=== PATIENT | female | born 1940 | race Caucasian/White ===

== ENCOUNTER 2017-02-06 11:14 | Inpatient (IN) | payer OTHER, MEDICARE ==
[2017-02-06] VITALS (9 sets, daily range): BP systolic 126–162; BP diastolic 60–86; PULSE 93–105; RESP 18–22; TEMP 100.2–101.5; O2SAT 90–94
[~2017-02-06] VITALS: Ht 167.6 cm; Wt 91.5 kg
[~2017-02-06 11:14] MED LIST: 1-ME1LIQ PO; ALPR.5 PO; AMIT25TA20 PO; DUONI INH; PROZ20CA11 PO; SIMV80TA PO; SYNT25TA PO; TEMA15 PO; VITD400 PO; WARF-20 PO; prednisone PO
[2017-02-06 11:56] LABS: AUTOMATED NEUTROPHIL # 25.9 TH/MM3 (1.8-7.7); BASOPHIL # 0.5 TH/MM3 (0-0.2); BASOPHIL % 1.9 % (0.0-2.0); HEMATOCRIT 43.5 % (35.0-46.0); LYMPH % 2.9 % (9.0-44.0); LYMPHOCYTE # 0.8 TH/MM3 (1.0-4.8); MEAN CELL VOLUME 79.6 FL (80.0-100.0); MEAN CORPUSCULAR HEMOGLOBIN 26.7 PG (27.0-34.0); MEAN CORPUSCULAR HGB CONC 33.6 % (32.0-36.0); MONO % 3.8 % (0.0-8.0); NEUT % 91.4 % (16.0-70.0); PLATELET COUNT 241 TH/MM3 (150-450); RED BLOOD COUNT 5.46 MIL/MM3 (4.00-5.30); WHITE BLOOD COUNT 28.3 TH/MM3 (4.0-11.0)
[2017-02-06 11:59] LABS: HEMO FLAGS DIFF FINAL
[2017-02-06 12:04] LABS: CHLORIDE 98 MEQ/L (98-107); POTASSIUM 3.5 MEQ/L (3.5-5.1); SODIUM (NA) 138 MEQ/L (136-145)
[2017-02-06] MEDS ORDERED: IPRASOL INH (12:05)
[2017-02-06] MEDS ORDERED: SYNT25TA PO (12:05)
[2017-02-06] MEDS ORDERED: ZOCO80TA PO (12:05)
[2017-02-06] MEDS ORDERED: PROZ20CA11 PO (12:05)
[2017-02-06] MEDS ORDERED: ASPI1TAB69 PO (12:05)
[2017-02-06] MEDS ORDERED: CHOL1CAP8 PO (12:05)
[2017-02-06] MEDS ORDERED: ALPR.5 PO (12:05)
[2017-02-06] MEDS ORDERED: AMIT1TAB79 PO (12:05)
[2017-02-06 12:08] LABS: ANION GAP 8 MEQ/L (5-15); BICARBONATE 31.8 MEQ/L (21.0-32.0); BLOOD UREA NITROGEN 12 MG/DL (7-18)
[2017-02-06 12:11] LABS: ALT (GPT) 26 U/L (10-53); AST (GOT) 16 U/L (15-37); GLOMERULAR FILTRATION RATE 65 ML/MIN (>89)
[2017-02-06 12:13] LABS: TOTAL BILIRUBIN ADULT 0.6 MG/DL (0.2-1.0)
[2017-02-06 12:14] LABS: ALKALINE PHOSPHATASE 120 U/L (45-117)
[2017-02-06] MEDS ORDERED: SODIUM CHLOR 0.9% 1000 ML INJ 1,000 ML IV SCH (12:15)
[2017-02-06] MEDS ORDERED: ONDANSETRON HCL 4 MG/2 ML VIAL IV ONE (12:15)
[2017-02-06] MEDS ORDERED: IOHEXOL 350 MG/ML 10 ML VIAL (for RAD DIAG) IV ONE (12:29)
--- NOTE | 2017-02-06 12:40 | PD ---
HPI Chief Complaint: GI Complaint Time Seen by Provider: 11:28 Travel History International Travel<30 days: No Contact w/Intl Traveler<30days: No Traveled to known affect area: No History of Present Illness HPI This 76 year-old woman who presents to the emergency department complaining that she's been sick for 3-4 days now with dry heaves retching body aches and fevers chills. She didn't take her temperature at home but had subjective chills. She really hasn't had much cough. She denies any change in her bowel movements or diarrhea. She has some mild abdominal pain in the midabdomen. No definite sick contacts. She is feeling worse today and so she came into the emergency department. Previous abdominal surgical histories include hysterectomy and cholecystectomy. She has a lot of problems of the right knee which I think may still be chronically infected after she had a knee replacement about a year or so ago. This was complicated by developing C. difficile which was difficult to treat, as well as by DVT in the right leg for which she was on Coumadin for 6 months. History Past Medical History Narrative Medical Right knee problems ongoing since last year History of C. difficile History of DVT in the right leg Hypertension on hyperlipidemia Hypothyroidism Influenza Vaccination: Yes Menopausal: Yes Social History Alcohol Use: Yes Tobacco Use: No Allergies-Medications (Allergen,Severity, Reaction): Coded Allergies: Adhesives (Unverified Allergy, Intermediate, TEARS SKIN, 02/06/17) Sulfa (Verified Allergy, Unknown, 02/06/17) HIVES-INTERMEDIATE REACTION Reported Meds & Prescriptions Reported Meds & Active Scripts Active Reported Synthroid (Levothyroxine Sodium) 25 Mcg Tab 25 Mcg PO DAILY Prozac (Fluoxetine HCl) 20 Mg Cap 20 Mg PO DAILY Aspirin 81 Mg Tabdr 81 Mg PO DAILY Zocor (Simvastatin) 80 Mg Tab 80 Mg PO DAILY Vitamin D3 (Cholecalciferol) 400 Unit Cap 400 Units PO DAILY Elavil (Amitriptyline HCl) 25 Mg Tab 1 Tab PO HS Xanax (Alprazolam) 0.5 Mg Tab 0.5 Mg PO BID PRN Duoneb (Ipratropium-Albuterol Neb) 0.5-2.5 Mg/3 Ml Neb 1 Nebule INH Q4HR NEB Review of Systems Except as stated in HPI: all other systems reviewed are Neg Physical Exam Narrative GENERAL: Well-appearing 76 year-old woman, no acute distress. SKIN: Warm and dry. HEAD: Atraumatic. Normocephalic. EYES: Pupils equal and round. No scleral icterus. No injection or drainage. ENT: No nasal bleeding or discharge. Mucous membranes pink and moist. NECK: Trachea midline. No JVD. CARDIOVASCULAR: Regular rate and rhythm. No murmur appreciated. RESPIRATORY: No accessory muscle use. Clear to auscultation. Breath sounds equal bilaterally. GASTROINTESTINAL: Abdomen is obese and soft. Doesn't appear distended. There is moderate left-sided tenderness to palpation with some voluntary guarding. No peritonitis. MUSCULOSKELETAL: No obvious deformities. No edema. NEUROLOGICAL: Awake and alert. Cranial nerves II through XII intact. Motor and sensory grossly within normal limits. Five out of 5 muscle strength in all muscle groups. Normal speech. PSYCHIATRIC: Appropriate mood and affect; insight and judgment normal. Data Data Last Documented VS Vital Signs Date Time Temp Pulse Resp B/P Pulse Ox O2 Delivery O2 Flow Rate FiO2 02/06/17 13:35 100.4 98 18 147/72 94 Room Air Orders Complete Blood Count With Diff (02/06/17 11:29) Comprehensive Metabolic Panel (02/06/17 11:29) Lipase (02/06/17 11:29) Urinalysis - C+S If Indicated (02/06/17 11:29) Iv Access Insert/Monitor (02/06/17 11:29) Lactic Acid Sepsis Protocol (02/06/17 11:29) Ct Abd/Pel W Iv Contrast(Rout) (02/06/17 ) Chest, Single Ap (02/06/17 ) Influenzae A/B Antigen (02/06/17 12:07) Blood Culture (02/06/17 12:07) Sodium Chlor 0.9% 1000 Ml Inj (Ns 1000 M (02/06/17 12:15) Ondansetron Inj (Zofran Inj) (02/06/17 12:15) Iohexol 350 Inj (Omnipaque 350 Inj) (02/06/17 12:29) Ct Thorax/ Chest Wo Iv Contras (02/06/17 ) Labs Laboratory Tests Test 02/06/17 02/06/17 11:48 13:26 White Blood Count 28.3 TH/MM3 Red Blood Count 5.46 MIL/MM3 Hemoglobin 14.6 GM/DL Hematocrit 43.5 % Mean Corpuscular Volume 79.6 FL Mean Corpuscular Hemoglobin 26.7 PG Mean Corpuscular Hemoglobin 33.6 % Concent Red Cell Distribution Width 15.0 % Platelet Count 241 TH/MM3 Mean Platelet Volume 10.7 FL Neutrophils (%) (Auto) 91.4 % Lymphocytes (%) (Auto) 2.9 % Monocytes (%) (Auto) 3.8 % Eosinophils (%) (Auto) 0.0 % Basophils (%) (Auto) 1.9 % Neutrophils # (Auto) 25.9 TH/MM3 Lymphocytes # (Auto) 0.8 TH/MM3 Monocytes # (Auto) 1.1 TH/MM3 Eosinophils # (Auto) 0.0 TH/MM3 Basophils # (Auto) 0.5 TH/MM3 CBC Comment DIFF FINAL Differential Comment Sodium Level 138 MEQ/L Potassium Level 3.5 MEQ/L Chloride Level 98 MEQ/L Carbon Dioxide Level 31.8 MEQ/L Anion Gap 8 MEQ/L Blood Urea Nitrogen 12 MG/DL Creatinine 0.85 MG/DL Estimat Glomerular Filtration 65 ML/MIN Rate Random Glucose 158 MG/DL Lactic Acid Level 1.3 mmol/L Calcium Level 9.4 MG/DL Total Bilirubin 0.6 MG/DL Aspartate Amino Transf 16 U/L (AST/SGOT) Alanine Aminotransferase 26 U/L (ALT/SGPT) Alkaline Phosphatase 120 U/L Total Protein 8.9 GM/DL Albumin 3.8 GM/DL Lipase 94 U/L Urine Collection Type CLEAN CATCH Urine Color YELLOW Urine Turbidity CLEAR Urine pH 7.0 Urine Specific [place] 1.010 Urine Protein TRACE mg/dL Urine Glucose (UA) NEG mg/dL Urine Ketones TRACE mg/dL Urine Occult Blood TRACE Urine Nitrite NEG Urine Bilirubin NEG Urine Leukocyte Esterase NEG Urine RBC 0-3 /hpf Urine WBC 0-2 /hpf Urine Squamous Epithelial 0-5 /hpf Cells Microscopic Urinalysis Comment CULT NOT INDICATED Urine Collection Time 13:26 MDM Medical Decision Making Medical Screen Exam Complete: Yes Emergency Medical Condition: Yes Interpretation(s) LABS: CBC remarkable for marked leukocytosis CMP unremarkable Lipase unremarkable Chest x-ray: No acute infiltrate to explain current clinical symptoms. Questionable nodular density versus superimposition of shadows in the right lung base. Noncontrasted CT scan could be performed for further characterization. CT abdomen and pelvis: Diverticular disease without diverticulitis. Masslike lesions in the right middle lobe, the largest measuring 2.3 cm, dedicated CT scan chest recommended. Postsurgical changes with findings of prior cholecystectomy and hysterectomy. Differential Diagnosis Diverticulitis, colitis, influenza, URI, pneumonia, other Narrative Course Medical decision making INITIAL: This 76-year-old woman who presents to the emergency department complaining of retching, myalgias, with fever. She has abdominal tenderness I suspect an abdominal source such as diverticulitis. She had C. difficile last year after knee replacement surgery and infection. We'll check labs, x-ray, cultures, lactate, CT abdomen and pelvis, reassess. FINAL: Etiology of patient's symptoms is unclear. The high white count and the retching and abdominal tenderness makes C. difficile seem possible although she is not really having any stool changes. We'll plan on admission for observation. I spoke with Dr. tamika gaspar, will admit patient. Diagnosis Primary Impression: Abdominal pain Additional Impression: Leukocytosis Fritz Lopez MD Feb 06, 2017 12:40
--- NOTE | 2017-02-06 12:54 | RADHPO ---
EXAM DATE/TIME: 02/06/2017 12:18 This report includes an Addendum and supersedes previous reports for this exam. [facility] COMPARISON: CHEST SINGLE AP, October 07, 2015, 10:09. INDICATIONS : Short of breath MEDICAL HISTORY : Chronic obstructive pulmonary disease. Asthma SURGICAL HISTORY : None. ENCOUNTER: Initial ACUITY: 2 days PAIN SCORE: 0/10 LOCATION: Bilateral chest FINDINGS: A single view of the chest demonstrates symmetric aeration of the lungs. Questionable nodular density versus superimposition of an anterior rib and adjacent vascular markings in the right lung base. Romero gs otherwise clear without acute infiltrate or effusion. Slight dextroposition of the heart. Heart si ze is borderline but well compensated. Levoscoliosis of the lumbar spine but the osseous structures a re otherwise intact. CONCLUSION: 1. No acute infiltrate to explain current clinical symptoms. 2. Questionable nodular density versus superimposition of shadows in the right lung base. Noncontrast ed CT scan could be performed for further characterization. Mamadou Manuel MD on February 06, 2017 at 12:49 Board Certified Radiologist. This report was verified electronically. ADDENDUM: Of note, similar patchy density is identified in the left lingular region as well. Mamadou Manuel MD on February 06, 2017 at 16:35 Board Certified Radiologist. This report was verified electronically.
--- NOTE | 2017-02-06 13:02 | RADHPO ---
EXAM DATE/TIME: 02/06/2017 12:20 [facility] COMPARISON: CT ABDOMEN & PELVIS W CONTRAST, February 05, 2015, 13:57. INDICATIONS : Left lower quadrant pain. IV CONTRAST: 80 cc Omnipaque 350 (iohexol) IV ORAL CONTRAST: No oral contrast ingested. RADIATION DOSE: 19.16 CTDIvol (mGy) MEDICAL HISTORY : Hypertension. Chronic obstructive pulmonary disease. SURGICAL HISTORY : Cholecystectomy. Hysterectomy. ENCOUNTER: Initial ACUITY: 1 month PAIN SCALE: 8/10 LOCATION: Left lower quadrant TECHNIQUE: Volumetric scanning of the abdomen and pelvis was performed. Using automated exposure control and ad justment of the mA and/or kV according to patient size, radiation dose was kept as low as reasonably achievable to obtain optimal diagnostic quality images. FINDINGS: LOWER LUNGS: Interval development of masslike lesions in the right middle lobe. The largest measures 2.3 cm in alicia meter LIVER: Homogeneous density without lesion. There is no dilation of the biliary tree. Patient appears to be status post cholecystectomy. SPLEEN: Normal size without lesion. PANCREAS: Within normal limits. KIDNEYS: Normal in size and shape. There is no mass, stone or hydronephrosis. ADRENAL GLANDS: Within normal limits. VASCULAR: There is no aortic aneurysm. Dense atherosclerotic calcification of the distal aorta and iliac arteri es BOWEL/MESENTERY: Marked degenerative disease of the descending and sigmoid colon without diverticulitis. ABDOMINAL WALL: Within normal limits. RETROPERITONEUM: There is no lymphadenopathy. BLADDER: No wall thickening or mass. REPRODUCTIVE: Patient appears to be status post hysterectomy. INGUINAL: There is no lymphadenopathy or hernia. MUSCULOSKELETAL: Within normal limits for patient age. CONCLUSION: 1. Diverticular disease of the descending and sigmoid colon without diverticulitis. 2. Masslike lesions in the right middle lobe, the largest measuring 2.3 cm in diameter. A dedicated C T scan of the chest without contrast is recommended for further characterization. 3. Postsurgical changes with findings of prior cholecystectomy and hysterectomy . Mamadou Manuel MD on February 06, 2017 at 12:53 Board Certified Radiologist. This report was verified electronically.
[2017-02-06 13:30] LABS: BLOOD, URINE TRACE (NEG); GLUCOSE,URINE NEG (NEG); KETONE, URINE TRACE mg/dL (NEG); NITRITE,URINE NEG (NEG)
[2017-02-06 13:41] LABS: COMMENT (UR) CULT NOT INDICATED; CULTURE IF INDICATED CULT NOT INDICATED; METHOD OF COLLECTION CLEAN CATCH; RBC, URINE 0-3 /hpf (0-3); SQUAMOUS EPITHELIAL CELL URINE 0-5 /hpf (0-5); URINE COLOR YELLOW (YELLW/STRAW); WBC, URINE 0-2 /hpf (0-5)
[2017-02-06] MEDS ORDERED: metroNIDAZOLE 500 MG INJ 100 ML IV SCH (15:00)
[2017-02-06] MEDS ORDERED: NALOXONE HCL 0.4 MG/ML AMP IV PRN (16:15)
--- NOTE | 2017-02-06 16:32 | HHI.HP ---
HPI Service [facility] Hospitalists Primary Care Physician Reilly Rod M.D. Admission Diagnosis abdominal pain, leukocytosis Diagnoses: Chief Complaint: Fever Chills Dry heaves Nausea Travel History International Travel<30 Days: No Contact w/Intl Traveler <30 Da: No Traveled to Known Affected Are: No Sepsis Criteria SIRS Criteria (2 or more): Temp > 100.9 or < 96.8, Heart rate over 90, RR > 20 or PaCO2 < 32, WBC > 92212, < 4000 or > 10% bands Sepsis Criteria (SIRS+source): Infect source susp/known History of Present Illness This is a 76-year-old female with a past medical history significant for hypertension, dyslipidemia, COPD, hypothyroidism, DVT of the right leg, history of C. 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 Patient denies any increase in cough or shortness of breath. She denies any diarrhea constipation hematochezia or melena. She denies any burning with urination or hematuria. She denies any weight loss or night sweats. She underwent a previous total knee replacement approximately one year ago and reports chronic pain ever since and recent underwent bone scan 2 weeks ago and is awaiting the results. She has a history of heavy tobacco use of 3 packs of cigarettes a day for 65 years but quit smoking 1 month ago. She does not use oxygen at home. CT of the abdomen and pelvis was obtained which showed diverticular disease of the descending and sigmoid colon without diverticulitis and masslike lesion in the right middle lobe the largest measuring 2.3 cm and any diameter. CT of the chest shows 3 discrete parenchymal densities tussive of patchy pneumonic infiltrates, atypical neoplasm such as bronchioloalveolar carcinoma have similar appearance. Patient meets sepsis criteria with tachycardia, increased respiratory rate, fever and elevated white count of 28.3 with a left shift. Review of Systems 12 point review of systems completed and all pertinents negative except as stated in history of present illness Past Family Social History Past Medical History COPD History of C. 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 Past Surgical History Right total knee replacement Hysterectomy Cholecystectomy Cataract surgery Left ear surgery Removal of bone spur right foot fifth digit Reported Medications Synthroid (Levothyroxine Sodium) 25 Mcg Tab 25 Mcg PO DAILY Prozac (Fluoxetine HCl) 20 Mg Cap 20 Mg PO DAILY Aspirin 81 Mg Tabdr 81 Mg PO DAILY Zocor (Simvastatin) 80 Mg Tab 80 Mg PO DAILY Vitamin D3 (Cholecalciferol) 400 Unit Cap 400 Units PO DAILY Elavil (Amitriptyline HCl) 25 Mg Tab 1 Tab PO HS Xanax (Alprazolam) 0.5 Mg Tab 0.5 Mg PO BID PRN Duoneb (Ipratropium-Albuterol Neb) 0.5-2.5 Mg/3 Ml Neb 1 Nebule INH Q4HR NEB Allergies: Coded Allergies: Adhesives (Unverified Allergy, Intermediate, TEARS SKIN, 02/06/17) Sulfa (Verified Allergy, Unknown, 02/06/17) HIVES-INTERMEDIATE REACTION Active Ordered Medications Current Medications Medications (Trade) Dose Ordered Sig/Nick Route Start Time Stop Time Status Last Admin (NS 1000 ml Inj) 1,000 ml @ 84 mls/hr [id number] IV 02/06/17 16:13 UNV (NS Flush) 2 ml UNSCH PRN IV FLUSH 02/06/17 16:15 UNV (NS Flush) 2 ml BID IV FLUSH 02/06/17 21:00 UNV (Tylenol) 650 mg Q4H PRN PO 02/06/17 16:15 UNV (Zofran Inj) 4 mg Q6H PRN IVP 02/06/17 16:15 UNV (Colace) 100 mg Q12H PO 02/06/17 16:15 UNV (Narcan Inj) 0.4 mg UNSCH PRN IV 02/06/17 16:15 UNV (Flagyl) 500 mg Q8HR PO 02/06/17 16:15 UNV (Xanax) 0.5 mg BID PRN PO 02/06/17 16:30 UNV (Elavil) 25 mg HS PO 02/06/17 21:00 UNV (Ecotrin Ec) 81 mg DAILY PO 02/07/17 09:00 UNV (Vitamin D3) 400 units DAILY PO 02/07/17 09:00 UNV (PROzac) 20 mg DAILY PO 02/07/17 09:00 UNV (Synthroid) 25 mcg DAILY PO 02/07/17 09:00 UNV Non-Formulary Medication 80 mg DAILY PO 02/07/17 09:00 UNV Family History Father with cancer Mother, coronary artery disease, [place] Social History Patient has a lengthy history of heavy tobacco use 3 packs a day 65 years, reports quitting 1 month ago Denies any alcohol consumption or illicit drug use. Physical Exam Vital Signs Vital Signs Date Time Temp Pulse Resp B/P Pulse Ox O2 Delivery O2 Flow Rate FiO2 02/06/17 14:30 105 18 160/60 93 Nasal Cannula 2 02/06/17 13:35 100.4 98 18 147/72 94 Room Air 02/06/17 11:35 96 22 137/75 90 Room Air 02/06/17 11:22 101.2 98 20 157/71 92 Physical Exam GENERAL: This is a well-nourished, well-developed patient, in no apparent distress. Pleasant and cooperative. SKIN: No rashes, ecchymoses or lesions. Warm and dry. HEAD: Atraumatic. Normocephalic. EYES: Pupils equal round and reactive. Extraocular motions intact. No scleral icterus. No injection or drainage. ENT: Nose without bleeding, purulent drainage or septal hematoma. Throat without erythema, tonsillar hypertrophy or exudate. Uvula midline. Airway patent. NECK: Trachea midline. No lymphadenopathy. Supple, nontender, no meningeal signs. CARDIOVASCULAR: Regular rate and rhythm without murmurs, gallops, or rubs. RESPIRATORY: Bibasilar fine crackles noted. Expiratory wheezing throughout. GASTROINTESTINAL: Abdomen soft, nondistended. No hepato-splenomegaly, or palpable masses. No guarding. Tenderness to palpation left lower quadrant. MUSCULOSKELETAL: Extremities without clubbing, cyanosis, or edema. No joint effusion, or edema noted. No calf tenderness. Some tenderness to palpation right knee. Well-healed surgical scar anterior right knee with some mild warmth. No appreciable effusion or erythema. NEUROLOGICAL: Awake and alert. Able to move all 4 extremities. No focal neurologic deficit. Laboratory Laboratory Tests Test 02/06/17 02/06/17 11:48 13:26 White Blood Count 28.3 Red Blood Count 5.46 Hemoglobin 14.6 Hematocrit 43.5 Mean Corpuscular Volume 79.6 Mean Corpuscular Hemoglobin 26.7 Mean Corpuscular Hemoglobin 33.6 Concent Red Cell Distribution Width 15.0 Platelet Count 241 Mean Platelet Volume 10.7 Neutrophils (%) (Auto) 91.4 Lymphocytes (%) (Auto) 2.9 Monocytes (%) (Auto) 3.8 Eosinophils (%) (Auto) 0.0 Basophils (%) (Auto) 1.9 Neutrophils # (Auto) 25.9 Lymphocytes # (Auto) 0.8 Monocytes # (Auto) 1.1 Eosinophils # (Auto) 0.0 Basophils # (Auto) 0.5 CBC Comment DIFF FINAL Differential Comment Sodium Level 138 Potassium Level 3.5 Chloride Level 98 Carbon Dioxide Level 31.8 Anion Gap 8 Blood Urea Nitrogen 12 Creatinine 0.85 Estimat Glomerular Filtration 65 Rate Random Glucose 158 Lactic Acid Level 1.3 Calcium Level 9.4 Total Bilirubin 0.6 Aspartate Amino Transf 16 (AST/SGOT) Alanine Aminotransferase 26 (ALT/SGPT) Alkaline Phosphatase 120 Total Protein 8.9 Albumin 3.8 Lipase 94 Urine Collection Type CLEAN CATCH Urine Color YELLOW Urine Turbidity CLEAR Urine pH 7.0 Urine Specific [place] 1.010 Urine Protein TRACE Urine Glucose (UA) NEG Urine Ketones TRACE Urine Occult Blood TRACE Urine Nitrite NEG Urine Bilirubin NEG Urine Leukocyte Esterase NEG Urine RBC 0-3 Urine WBC 0-2 Urine Squamous Epithelial 0-5 Cells Microscopic Urinalysis Comment CULT NOT INDICATED Urine Collection Time 13:26 Date/Time Procedure Status Source Growth 02/06/17 12:10 Influenza Types A,B Antigen (BRUCE) - Final Complete Nasal Washing NEGATIVE FOR FLU A AND B ANTIGEN.... 02/06/17 11:58 Aerobic Blood Culture Received Blood Peripheral Pending 02/06/17 11:58 Anaerobic Blood Culture Received Blood Peripheral Pending Result Diagram: 02/06/17 1148 02/06/17 1148 Imaging Last 48 hours Impressions Chest X-Ray 02/06/17 0000 Signed Impressions: Service Date/Time: Saturday, February 06, 2017 12:18 - CONCLUSION: 1. No acute infiltrate to explain current clinical symptoms. 2. Questionable nodular density versus superimposition of shadows in the right lung base. Noncontrasted CT scan could be performed for further characterization. Mamadou Manuel MD ADDENDUM: Of note, similar patchy density is identified in the left lingular region as well. Mamadou Manuel MD Chest CT 02/06/17 0000 Signed Impressions: Service Date/Time: Monday, February 06, 2017 16:06 - CONCLUSION: 1. CT confirms the presence of 3 discrete parenchymal densities. These are in the right middle lobe, left lingula and right azygoesophageal recess. Imaging characteristics are suggestive of patchy pneumonic infiltrates rather than neoplastic processes. However, I would recommend a followup CT of the chest in a few weeks after therapy to ensure resolution. Atypical neoplasm such as bronchoalveolar carcinoma could have a similar appearance. 2. No obvious adenopathy on this noncontrasted study. 3. Levorotoscoliosis of the thoracolumbar spine. Mamadou Manuel MD Abdomen/Pelvis CT 02/06/17 0000 Signed Impressions: Service Date/Time: Monday, February 06, 2017 12:20 - CONCLUSION: 1. Diverticular disease of the descending and sigmoid colon without diverticulitis. 2. Masslike lesions in the right middle lobe, the largest measuring 2.3 cm in diameter. A dedicated CT scan of the chest without contrast is recommended for further characterization. 3. Postsurgical changes with findings of prior cholecystectomy and hysterectomy . Mamadou Manuel MD Assessment and Plan Assessment and Plan 76-year-old female with a past medical history significant for hypertension, dyslipidemia, hypothyroidism, DVT of the right leg, history of C. 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 Leukocytosis due to recurrent C. difficile infection versus gastroenteritis versus lung infection Patient will be admitted to inpatient Patient with a previous history of C. difficile Lactic acid normal CT of the abdomen reveals diverticular disease without evidence of diverticulitis. There is a masslike lesion in the right middle lobe largest measuring 2.[address] of the chest reveals 3 discrete parenchymal densities suggestive of an acute infiltrates, atypical neoplasm may have similar appearance. Chest x-ray personally reviewed, no evidence of infiltrate, questionable density in base. IV fluids Flagyl by mouth C. difficile ordered. Follow-up on results and adjust treatment as indicated. IV antiemetics when necessary Repeat CBC in a.m. Pneumonia - CT chest results as stated above - PO Flagyl for possible C. difficile infection but will offer cross coverage for possible anaerobes of the lung - IV Levaquin 750 mg daily - Consult pulmonary medicine for assistance, specifically to address concerns of possible atypical neoplasm Sepsis Patient meets sepsis criteria with tachycardia, fever and elevated white count IV fluids Follow up on blood culture results COPD Resume home bronchodilators Supple abdominal oxygen Duonebs as needed OA status post right total knee replacement with chronic right knee pain Patient had bone scan done approximately 2 weeks ago and is awaiting results Concern for postoperative knee infection Will contact patient surgeon and discuss History of DVT on Coumadin. Resume dose. DVT prophylaxis Coumadin SCD/RUSLAN valderrama Written by Brittany Robles PA-C acting as scribe for Dr. Cain on 02/06/17 at 16:28. Physician Certification 2 Midnight Certification Type: Admission for Inpatient Services Order for Inpatient Services The services are ordered in accordance with Medicare regulations or non- Medicare payer requirements, as applicable. In the case of services not specified as inpatient-only, they are appropriately provided as inpatient services in accordance with the 2-midnight benchmark. Estimated LOS (days): 2 days is the estimated time the patient will need to remain in the hospital, assuming treatment plan goals are met and no additional complications. Post-Hospital Plan: Not yet determined Brittany Robles Feb 06, 2017 16:32 Steffi Cain MD Feb 11, 2017 09:40
--- NOTE | 2017-02-06 16:36 | RADHPO ---
EXAM DATE/TIME: 02/06/2017 16:06 [place] COMPARISON: CHEST SINGLE AP, February 06, 2017, 12:18. INDICATIONS : Abnormal CT abdomen/pelvis scan. Evaluate for mass. RADIATION DOSE: 11.69 CTDIvol (mGy) MEDICAL HISTORY : Hypertension. Chronic obstructive pulmonary disease. SURGICAL HISTORY : Cholecystectomy. Hysterectomy. Orthopedic sugery. ENCOUNTER: Initial ACUITY: 1 day PAIN SCALE: 0/10 LOCATION: chest TECHNIQUE: Volumetric scanning of the chest was performed. Using automated exposure control and adjustment of t he mA and/or kV according to patient size, radiation dose was kept as low as reasonably achievable to obtain optimal diagnostic quality images. FINDINGS: LUNGS: There are discrete areas of parenchymal density, one of which measures 3.2 cm in diameter and corresp onds to the abnormality on previous plain film. Second area of similar density is seen in the left li ngula and a third area of consolidation is identified in the azygoesophageal recess in the right lowe r lobe. PLEURAE: There is no pleural thickening or pleural effusion. MEDIASTINUM: The heart and great vessels demonstrate no acute abnormality. There is no mediastinal or hilar lymph adenopathy identified on this noncontrasted exam. There is atherosclerotic calcification of the coron supriya arteries. AXILLAE: Within normal limits. No lymphadenopathy. MUSCULOSKELETAL: Levoscoliosis of the thoracolumbar spine. MISCELLANEOUS: The visualized upper abdominal organs demonstrate no acute abnormality. CONCLUSION: 1. CT confirms the presence of 3 discrete parenchymal densities. These are in the right middle lobe, left lingula and right azygoesophageal recess. Imaging characteristics are suggestive of patchy pneum onic infiltrates rather than neoplastic processes. However, I would recommend a followup CT of the est in a few weeks after therapy to ensure resolution. Atypical neoplasm such as bronchoalveolar carc inoma could have a similar appearance. 2. No obvious adenopathy on this noncontrasted study. 3. Levorotoscoliosis of the thoracolumbar spine. Mamadou Manuel MD on February 06, 2017 at 16:25 Board Certified Radiologist. This report was verified electronically.
[2017-02-06] MEDS: metroNIDAZOLE 500 MG TAB PO SCH ×2 (16:45→21:57)
[2017-02-06] MEDS: ONDANSETRON HCL 4 MG/2 ML VIAL IVP PRN ×2 (16:59→22:52)
[2017-02-06] MEDS: SODIUM CHLOR 0.9% 1000 ML INJ 1,000 ML IV SCH (17:00)
[2017-02-06] MEDS ORDERED: VANCOMYCIN 500 MG VIAL (FOR ORAL USE ONLY) PO SCH (18:00)
[2017-02-06] MEDS: RESP: ALBUTEROL 2.5 MG/IPRATROPIUM 0.5 MG NEB (SCH) NEB (18:36)
[2017-02-06] MEDS: ACETAMINOPHEN 325 MG TAB PO PRN (18:50)
[2017-02-06] MEDS ORDERED: LEVOFLOXACIN 750 MG PREMIX INJ 150 ML IV SCH (20:00)
[2017-02-06] MEDS: AMITRIPTYLINE HCL 25 MG TAB PO SCH (20:27)
[2017-02-06] MEDS: ACETAMINOPHEN/HYDROcodone 325 MG/5 MG TAB PO PRN (20:27)
[2017-02-06] MEDS: DOCUSATE SODIUM 100 MG CAP PO SCH (20:27)
[2017-02-06] MEDS: SODIUM CHLORIDE 0.9% FLUSH 10 ML FLUSH IV FLUSH SCH (20:28)
[2017-02-07] VITALS (7 sets, daily range): BP systolic 92–142; BP diastolic 54–76; PULSE 85–103; RESP 16–24; TEMP 96.8–99.7; O2SAT 90–96
[2017-02-07 05:52] LABS: AUTOMATED NEUTROPHIL # 28.8 TH/MM3 (1.8-7.7); BASOPHIL % 0.1 % (0.0-2.0); EOSINOPHIL % 0.1 % (0.0-4.0); HEMATOCRIT 35.4 % (35.0-46.0); LYMPH % 4.3 % (9.0-44.0); LYMPHOCYTE # 1.3 TH/MM3 (1.0-4.8); MEAN CELL VOLUME 79.9 FL (80.0-100.0); MEAN CORPUSCULAR HEMOGLOBIN 26.8 PG (27.0-34.0); MEAN CORPUSCULAR HGB CONC 33.5 % (32.0-36.0); NEUT % 91.5 % (16.0-70.0); PLATELET COUNT 177 TH/MM3 (150-450); RED BLOOD COUNT 4.43 MIL/MM3 (4.00-5.30); RED CELL DISTRIBUTION WIDTH 15.3 % (11.6-17.2); WHITE BLOOD COUNT 31.4 TH/MM3 (4.0-11.0)
[2017-02-07 05:55] LABS: HEMO FLAGS DIFF FINAL
[2017-02-07 06:08] LABS: POTASSIUM 3.7 MEQ/L (3.5-5.1)
[2017-02-07] MEDS: LEVOTHYROXINE SODIUM 25 MCG TAB PO SCH (06:10)
[2017-02-07] MEDS: metroNIDAZOLE 500 MG TAB PO SCH ×3 (06:10→21:17)
[2017-02-07] MEDS: SODIUM CHLOR 0.9% 1000 ML INJ 1,000 ML IV SCH ×2 (06:10→16:03)
[2017-02-07 06:27] LABS: BICARBONATE 30.7 MEQ/L (21.0-32.0); MAGNESIUM 1.7 MG/DL (1.5-2.5)
[2017-02-07] MEDS: RESP: ALBUTEROL 2.5 MG/IPRATROPIUM 0.5 MG NEB (SCH) NEB ×3 (07:44→19:49)
[2017-02-07] MEDS: SODIUM CHLORIDE 0.9% FLUSH 10 ML FLUSH IV FLUSH SCH ×2 (09:00→21:00)
--- NOTE | 2017-02-07 09:25 | HHI.PR ---
Subjective Remarks Follow-up on patient with pneumonia. Patient states she feels a little better today. No episodes of diarrhea since admission so unable to collect specimen. No nausea/vomiting or abdominal pain. No chest pain. Shortness of breath is improved. Objective Vitals Vital Signs Date Time Temp Pulse Resp B/P Pulse Ox O2 Delivery O2 Flow Rate FiO2 02/07/17 04:00 99.7 97 16 92/61 91 02/07/17 00:00 96.8 103 22 142/65 90 02/06/17 20:00 100.2 93 21 126/64 94 02/06/17 20:00 96 02/06/17 18:39 92 Nasal Cannula 2.00 02/06/17 17:00 101.5 101 20 141/77 92 02/06/17 16:38 84 20 162/68 93 Nasal Cannula 2 02/06/17 15:35 100 20 154/86 Nasal Cannula 02/06/17 14:30 105 18 160/60 93 Nasal Cannula 2 02/06/17 13:35 100.4 98 18 147/72 94 Room Air 02/06/17 11:35 96 22 137/75 90 Room Air 02/06/17 11:22 101.2 98 20 157/71 92 I/O 02/06/17 02/06/17 02/06/17 02/07/17 02/07/17 02/07/17 07:00 15:00 23:00 07:00 15:00 23:00 Intake Total 1000 ml 708 ml 743 ml Balance 1000 ml 708 ml 743 ml Intake Oral 120 ml 240 ml IV Total 1000 ml 588 ml 503 ml # Voids 1 2 2 # Bowel Movements 0 0 Result Diagram: 02/07/17 0520 02/07/17 0520 Imaging Last 48 hours Impressions Chest X-Ray 02/06/17 0000 Signed Impressions: Service Date/Time: Monday, February 06, 2017 12:18 - CONCLUSION: 1. No acute infiltrate to explain current clinical symptoms. 2. Questionable nodular density versus superimposition of shadows in the right lung base. Noncontrasted CT scan could be performed for further characterization. Mamadou Manuel MD ADDENDUM: Of note, similar patchy density is identified in the left lingular region as well. Mamadou Manuel MD Chest CT 02/06/17 0000 Signed Impressions: Service Date/Time: Monday, February 06, 2017 16:06 - CONCLUSION: 1. CT confirms the presence of 3 discrete parenchymal densities. These are in the right middle lobe, left lingula and right azygoesophageal recess. Imaging characteristics are suggestive of patchy pneumonic infiltrates rather than neoplastic processes. However, I would recommend a followup CT of the chest in a few weeks after therapy to ensure resolution. Atypical neoplasm such as bronchoalveolar carcinoma could have a similar appearance. 2. No obvious adenopathy on this noncontrasted study. 3. Levorotoscoliosis of the thoracolumbar spine. Mamadou Manuel MD Abdomen/Pelvis CT 02/06/17 0000 Signed Impressions: Service Date/Time: Monday, February 06, 2017 12:20 - CONCLUSION: 1. Diverticular disease of the descending and sigmoid colon without diverticulitis. 2. Masslike lesions in the right middle lobe, the largest measuring 2.3 cm in diameter. A dedicated CT scan of the chest without contrast is recommended for further characterization. 3. Postsurgical changes with findings of prior cholecystectomy and hysterectomy . Mamadou Manuel MD Objective Remarks GENERAL: This is a well-nourished, well-developed patient, in no apparent distress. Pleasant and cooperative. SKIN: Warm and dry. HEAD: Atraumatic. Normocephalic. EYES: EOMI. CARDIOVASCULAR: Regular rate and rhythm without murmurs, gallops, or rubs. RESPIRATORY: Bibasilar fine crackles noted. GASTROINTESTINAL: Abdomen soft, nondistended. No hepato-splenomegaly, or palpable masses. No guarding. NTTP. MUSCULOSKELETAL: Extremities without clubbing, cyanosis, or edema. No joint effusion, or edema noted. No calf tenderness. Well-healed surgical scar anterior right knee with some mild warmth as well as tenderness to palpation and with ROM. No appreciable effusion or erythema. NEUROLOGICAL: Awake and alert. Able to move all 4 extremities. No focal neurologic deficit. Medications and IVs Current Medications Medications (Trade) Dose Ordered Sig/Nick Route Start Time Stop Time Status Last Admin (NS 1000 ml Inj) 1,000 ml @ 84 mls/hr [id number] IV 02/06/17 16:13 02/07/17 06:10 (NS Flush) 2 ml UNSCH PRN IV FLUSH 02/06/17 16:15 (NS Flush) 2 ml BID IV FLUSH 02/06/17 21:00 (Tylenol) 650 mg Q4H PRN PO 02/06/17 16:15 02/06/17 18:50 (Zofran Inj) 4 mg Q6H PRN IVP 02/06/17 16:15 02/06/17 22:52 (Colace) 100 mg Q12HR PO 02/06/17 21:00 02/06/17 20:27 (Narcan Inj) 0.4 mg UNSCH PRN IV 02/06/17 16:15 (Flagyl) 500 mg Q8HR PO 02/06/17 16:45 02/07/17 06:10 (Xanax) 0.5 mg BID PRN PO 02/06/17 16:30 (Elavil) 25 mg HS PO 02/06/17 21:00 02/06/17 20:27 (Ecotrin Ec) 81 mg DAILY PO 02/07/17 09:00 (Vitamin D3) 400 units DAILY PO 02/07/17 09:00 (PROzac) 20 mg DAILY PO 02/07/17 09:00 (Synthroid) 25 mcg DAILY@0600 PO 02/07/17 06:00 02/07/17 06:10 Pravastatin Sodium 80 mg 80 mg DAILY PO 02/07/17 09:00 (Levaquin 750 Mg Premix Inj) 150 ml @ 100 mls/hr Q24H IV 02/06/17 20:00 02/06/17 20:28 ([place] 5-325 Mg) 1 tab Q6H PRN PO 02/06/17 19:45 02/06/17 20:27 A/P Assessment and Plan 76-year-old female with a past medical history significant for hypertension, dyslipidemia, hypothyroidism, DVT of the right leg, history of C. 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 Leukocytosis due to gastroenteritis and PNA worsening white count, 28.3 -> 31.4. low grade temp 100.2. HR 97 Abdominal complaints have resolved. Patient with a previous history of C. difficile. No diarrhea since admission. Unable to collect sample. Unlikely current CDiff infection. D/C cdiff collection and isolation. Lactic acid normal CT of the abdomen reveals diverticular disease without evidence of diverticulitis. There is a masslike lesion in the right middle lobe largest measuring 2.[address] of the chest reveals 3 discrete parenchymal densities suggestive of an acute infiltrates, atypical neoplasm may have similar appearance. Continue Flagyl by mouth IV antiemetics when necessary Repeat CBC in a.m. Pneumonia - CT chest results as stated above - Continue with PO Flagyl for coverage for possible anaerobes of the lung - Continue IV Levaquin 750 mg daily - Consult pulmonary medicine for assistance, specifically to address concerns of possible atypical neoplasm Hypotensive this am - continue with IVF - Patient does not have a history of hypertension and as such is not on any antihypertensives - close monitoring of BP Sepsis Patient met sepsis criteria with tachycardia, fever and elevated white count. White count up to 31.4. Still with low-grade temperature 100.2. Hypotensive. Heart rate 97. Continue IV fluids and IV antibiotics Follow up on blood culture results - still pending STEPHANIE Mild creatinine 0.85 -> 1.10 Avoid nephrotoxic agents ?Medication reaction, Levaquin Continue IV fluids Will continue to monitor closely COPD continue home bronchodilators Supple abdominal oxygen Duonebs as needed OA status post right total knee replacement with chronic right knee pain Patient had bone scan done approximately 2 weeks ago and is awaiting results Concern for postoperative knee infection and/or possible loosening of components No evidence of infection, unlikely leukocytosis related to the TKR. Will defer discussion with surgeon at this time. History of DVT Continue patient's home Coumadin Obtain PT/INR DVT prophylaxis On Coumadin Written by Brittany Robles PA-C acting as scribe for Dr. El on 02/07/17 at 08:03. All or portions of this note were transcribed by scribe Brittany Robles PA-C. I, Dr. Kj El personally performed the history, physical exam, and medical decision making; and confirmed the accuracy of the information in the transcribed note. Authenticated by Dr. Kj El on 02/07/17 at 14:11. Brittany Robles Feb 07, 2017 09:25 Kj El MD Feb 07, 2017 14:11
[2017-02-07 10:11] LABS: BLOOD GAS BASE EXCESS 1.9 mmol/L (-2-2); BLOOD GAS HCO3 26 mmol/L (22-26); BLOOD GAS METHEMOGLOBIN 1.1 % (0-2); BLOOD GAS O2 HGB SATURATION 91 % (90-100); BLOOD GAS PCO2 42 mmHG (38-42); BLOOD GAS PO2 69 mmHG (61-120); BLOOD GAS TOTAL HGB 11.7 G/DL (12.0-16.0); TEMP CORR TO 98.6
[2017-02-07 10:12] LABS: CRITICAL VALUE NO; DRAW SITE LT RADIAL; LITER FLOW 4 L/M; NUMBER OF ARTERIAL PUNCTURES 1; OXYGEN DEVICE NASAL CANNULA; STAT NO; ULNAR PULSE PRESENT
[2017-02-07] MEDS: CHOLECALCIFEROL (VIT D3) 400 UNIT TAB PO SCH (10:22)
[2017-02-07] MEDS: FLUoxetine HCL 20 MG CAP PO SCH (10:23)
[2017-02-07] MEDS: PRAVASTATIN SOD 80 MG TAB PO SCH (10:23)
[2017-02-07] MEDS: ASPIRIN EC 81 MG TABEC PO SCH (10:23)
[2017-02-07] MEDS: DOCUSATE SODIUM 100 MG CAP PO SCH ×2 (10:23→21:17)
[2017-02-07] MEDS: ACETAMINOPHEN/HYDROcodone 325 MG/5 MG TAB PO PRN ×2 (10:28→16:50)
[2017-02-07] MEDS: ONDANSETRON HCL 4 MG/2 ML VIAL IVP PRN (10:28)
[2017-02-07] MEDS: ACETAMINOPHEN 325 MG TAB PO PRN (13:50)
--- NOTE | 2017-02-07 18:24 | MB ---
cc: NÉSTOR PALM M.D. DATE OF CONSULTATION: 02/07/2017 REASON FOR CONSULTATION Pneumonia. HISTORY OF PRESENT ILLNESS Mrs. Kapadia is a 76-year-old female who has a known history of COPD. She does have a long heavy smoking history, has stopped smoking about a month ago. She was admitted with a four-day history of generalized weakness, nausea and left lower quadrant abdominal pain. She has an occasional cough with a small amount of clear whitish sputum. No fever or chills, no hemoptysis. She was noted to be hypoxemic, she was placed on oxygen therapy. CT scan of the chest with right midlung infiltrate, pneumonia suspect. PAST MEDICAL HISTORY 1. COPD. 2. DVT, on Coumadin therapy. 3. Hypertension. 4. Hyperlipidemia. 5. Hypothyroidism. 6. Status post right total knee replacement. 7. Hysterectomy. 8. Cholecystectomy. 9. Cataract surgery. 10. She had surgery on her left ear as well. 11. Spur removal from her right foot. MEDICATIONS AT HOME 1. Duo-Neb. 2. Xanax. 3. Elavil. 4. Zocor. 5. Aspirin. 6. Prozac. 7. Synthroid. ALLERGIES ADHESIVE TAPE, SULFA DRUGS. FAMILY HISTORY Noncontributory. REVIEW OF SYSTEMS A 12-point review of systems as per HPI and past history otherwise negative. SOCIAL HISTORY A long heavy smoking history of three packs a day, stopped smoking about a month ago, she smoked for over 60 years. Does not drink any alcohol. No TB. No industrial exposure. PHYSICAL EXAMINATION VITAL SIGNS: Temperature 98, pulse 80, respiration 18, blood pressure 110/70, oxygen saturation 90% on 2 liters oxygen nasal cannula. HEENT: Unremarkable. Eyes without icterus. NECK: Neck without adenopathy or thyroid enlargement. Central trachea. CHEST: Chest without dullness to percussion. Scattered rhonchi on auscultation. CARDIAC: PMI distant. S1, S2 audible. No murmur, no rub. ABDOMEN: Lax, bowel sounds audible. EXTREMITIES: No clubbing, cyanosis or edema. SKIN: Normal. No lymphadenopathy. IMAGING CT scan of the chest with right midlung infiltrate suggestive of pneumonia rather than malignancy. LABORATORY DATA White count 31,000, hemoglobin 12, hematocrit 35, sodium 141, potassium 3.7, BUN 17, creatinine 1.1. IMPRESSION 1. COPD exacerbation. 2. Hypoxic respiratory failure. 3. Pneumonia. 4. History of DVT. 5. Hypertension. 6. Hyperlipidemia. 7. Hypothyroidism. 8. Mood disorder. PLAN The patient will be maintained on oxygen therapy. She may require home oxygen therapy depending on her oxygenation upon time of discharge. A followup CT scan of the chest in a month would be appropriate. Antibiotic therapy. Bronchodilator therapy would be appropriate as well. Upon discharge we will see the patient in a week in the office at which time further evaluation will be undertaken as needed. I do thank you for asking me to partake in Mrs. Kapadia's care. Néstor Palm MD WWW/JOEL /2:50 PM /6:06 PM
[2017-02-07] MEDS: AMITRIPTYLINE HCL 25 MG TAB PO SCH (21:17)
[2017-02-08] VITALS (13 sets, daily range): BP systolic 102–142; BP diastolic 65–78; PULSE 92–160; RESP 18–22; TEMP 96–98.7; O2SAT 91–96
[2017-02-08] MEDS: ACETAMINOPHEN/HYDROcodone 325 MG/5 MG TAB PO PRN ×3 (00:01→21:31)
[2017-02-08] MEDS: SODIUM CHLOR 0.9% 1000 ML INJ 1,000 ML IV SCH (01:50)
[2017-02-08] MEDS: ALPRAZolam 0.5 MG TAB PO PRN ×2 (01:50→17:17)
[2017-02-08] MEDS: LEVOTHYROXINE SODIUM 25 MCG TAB PO SCH (05:21)
[2017-02-08] MEDS: metroNIDAZOLE 500 MG TAB PO SCH ×3 (05:21→22:28)
[2017-02-08 06:06] LABS: AUTOMATED NEUTROPHIL # 17.5 TH/MM3 (1.8-7.7); BASOPHIL % 0.1 % (0.0-2.0); EOSINOPHIL % 0.1 % (0.0-4.0); HEMATOCRIT 33.4 % (35.0-46.0); LYMPH % 6.1 % (9.0-44.0); LYMPHOCYTE # 1.2 TH/MM3 (1.0-4.8); MEAN CELL VOLUME 80.8 FL (80.0-100.0); MEAN CORPUSCULAR HEMOGLOBIN 25.8 PG (27.0-34.0); MEAN CORPUSCULAR HGB CONC 31.9 % (32.0-36.0); MONO % 4.3 % (0.0-8.0); NEUT % 89.4 % (16.0-70.0); PLATELET COUNT 167 TH/MM3 (150-450); RED BLOOD COUNT 4.13 MIL/MM3 (4.00-5.30); RED CELL DISTRIBUTION WIDTH 15.9 % (11.6-17.2); WHITE BLOOD COUNT 19.5 TH/MM3 (4.0-11.0)
[2017-02-08 06:08] LABS: HEMO FLAGS DIFF FINAL
[2017-02-08 06:14] LABS: POTASSIUM 3.2 MEQ/L (3.5-5.1)
[2017-02-08 06:15] LABS: INTERNATIONAL NORMALIZED RATIO 1.1 RATIO
[2017-02-08 06:19] LABS: BICARBONATE 29.4 MEQ/L (21.0-32.0)
[2017-02-08] MEDS ORDERED: POTASSIUM CHLORIDE 10 MEQ CONTROLLED RELEASE TAB PO ONE (08:00)
[2017-02-08] MEDS: RESP: ALBUTEROL 2.5 MG/IPRATROPIUM 0.5 MG NEB (SCH) NEB ×2 (09:25→14:32)
[2017-02-08] MEDS: CHOLECALCIFEROL (VIT D3) 400 UNIT TAB PO SCH (09:37)
[2017-02-08] MEDS: ASPIRIN EC 81 MG TABEC PO SCH (09:39)
[2017-02-08] MEDS: FLUoxetine HCL 20 MG CAP PO SCH (09:39)
[2017-02-08] MEDS: PRAVASTATIN SOD 80 MG TAB PO SCH (09:39)
[2017-02-08] MEDS: DOCUSATE SODIUM 100 MG CAP PO SCH ×2 (09:39→21:30)
[2017-02-08] MEDS: LEVOFLOXACIN 750 MG PREMIX INJ 150 ML IV SCH (10:42)
--- NOTE | 2017-02-08 12:11 | HHI.PR ---
Subjective Remarks Follow-up the patient with pneumonia. She states that she's not feeling well today. Having some pain over her left anterior rib cage. Still with persistent cough. Denies any chest pain. Patient informs me that she also takes Norvasc daily. This medication was not in her med rec and patient is unable to recall dose. Objective Vitals Vital Signs Date Time Temp Pulse Resp B/P Pulse Ox O2 Delivery O2 Flow Rate FiO2 02/08/17 11:40 160 02/08/17 10:01 91 Nasal Cannula 4.00 02/08/17 08:00 96.0 92 18 128/78 96 02/08/17 08:00 92 02/08/17 04:00 97.4 100 20 142/73 95 02/08/17 00:00 97.5 98 20 118/65 94 02/07/17 20:00 97.5 87 20 115/57 96 02/07/17 20:00 89 02/07/17 19:50 95 Nasal Cannula 4.00 02/07/17 16:00 97.5 85 23 99/54 94 I/O 02/07/17 02/07/17 02/07/17 02/08/17 02/08/17 02/08/17 07:00 15:00 23:00 07:00 15:00 23:00 Intake Total 743 ml 900 ml 1464 ml Output Total 100 ml Balance 743 ml 900 ml 1364 ml Intake Oral 240 ml 900 ml 120 ml IV Total 503 ml 1344 ml Output Urine Total 100 ml # Voids 2 5 2 # Bowel Movements 0 0 0 Result Diagram: 02/08/17 0504 02/08/17 0504 Objective Remarks GENERAL: This is a well-nourished, well-developed patient, in no apparent distress. Pleasant and cooperative. SKIN: Warm and dry. HEAD: Atraumatic. Normocephalic. EYES: EOMI. CARDIOVASCULAR: Regular rate and rhythm without murmurs, gallops, or rubs. RESPIRATORY: Lungs clear to auscultation bilaterally. GASTROINTESTINAL: Abdomen soft, nondistended. No hepato-splenomegaly, or palpable masses. No guarding. NTTP. MUSCULOSKELETAL: Extremities without clubbing, cyanosis, or edema. No joint effusion, or edema noted. No calf tenderness. Well-healed surgical scar anterior right knee with some mild warmth as well as tenderness to palpation and with ROM. No appreciable effusion or erythema. Tenderness to palpation over left anterior rib cage. NEUROLOGICAL: Awake and alert. Able to move all 4 extremities. No focal neurologic deficit. Medications and IVs Current Medications Medications (Trade) Dose Ordered Sig/Nick Route Start Time Stop Time Status Last Admin (NS 1000 ml Inj) 1,000 ml @ 84 mls/hr [id number] IV 02/06/17 16:13 02/08/17 01:50 (NS Flush) 2 ml UNSCH PRN IV FLUSH 02/08/17 14:30 (Tylenol) 650 mg Q4H PRN PO 02/06/17 16:15 02/07/17 13:50 (Zofran Inj) 4 mg Q6H PRN IVP 02/06/17 16:15 02/07/17 10:28 (Colace) 100 mg Q12HR PO 02/06/17 21:00 02/08/17 09:39 (Narcan Inj) 0.4 mg UNSCH PRN IV 02/06/17 16:15 (Flagyl) 500 mg Q8HR PO 02/06/17 16:45 02/08/17 05:21 (Xanax) 0.5 mg BID PRN PO 02/06/17 16:30 02/08/17 01:50 (Elavil) 25 mg HS PO 02/06/17 21:00 02/07/17 21:17 (Ecotrin Ec) 81 mg DAILY PO 02/07/17 09:00 02/08/17 09:39 (Vitamin D3) 400 units DAILY PO 02/07/17 09:00 02/08/17 09:37 (PROzac) 20 mg DAILY PO 02/07/17 09:00 02/08/17 09:39 (Synthroid) 25 mcg DAILY@0600 PO 02/07/17 06:00 02/08/17 05:21 (Pravachol) 80 mg DAILY PO 02/07/17 09:00 02/08/17 09:39 Acetaminophen/ Hydrocodone Bitart 1 tab 1 tab Q6H PRN PO 02/06/17 19:45 02/08/17 05:20 Levofloxacin/ Dextrose 150 ml @ 100 mls/hr Q24H IV 02/08/17 11:00 02/08/17 10:42 (Cardizem Inj/NS Inj) 125 ml @ 0 mls/hr TITRATE IV 02/08/17 13:00 02/08/17 12:44 (Heparin Inj) 5,000 units Q8HR SQ 02/08/17 14:00 02/08/17 12:43 (NS Flush) 2 ml BID IV FLUSH 02/08/17 21:00 A/P Assessment and Plan 76-year-old female with a past medical history significant for hypertension, dyslipidemia, hypothyroidism, DVT of the right leg, history of C. 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 New onset atrial fibrillation with RVR - Cardiology consultation - IV diltiazem drip - Continue to monitor on telemetry - TSH 1.210 - Cycle cardiac enzymes - Echocardiogram ordered Leukocytosis due to gastroenteritis and PNA improving, white count, 28.3 -> 31.4 -> 19.5. afebrile. Abdominal complaints have resolved. Patient with a previous history of C. difficile. No diarrhea since admission. Unable to collect sample. Unlikely current CDiff infection. D/C cdiff collection and isolation. Lactic acid normal CT of the abdomen reveals diverticular disease without evidence of diverticulitis. There is a masslike lesion in the right middle lobe largest measuring 2.[address] of the chest reveals 3 discrete parenchymal densities suggestive of an acute infiltrates, atypical neoplasm may have similar appearance. Continue Flagyl by mouth IV antiemetics when necessary Repeat CBC in a.m. Pneumonia - CT chest results as stated above - Continue with PO Flagyl for coverage of possible anaerobes of the lung - Continue IV Levaquin 750 mg daily - Patient evaluated by Dr. Palm, very much appreciate his assistance. Agrees with above plan. Plan to follow-up with him in a week in the office following discharge. Hypotensive this am - continue with IVF - Patient does not have a history of hypertension and as such is not on any antihypertensives - close monitoring of BP Sepsis Patient met sepsis criteria with tachycardia, fever and elevated white count. White count up to 31.4. Still with low-grade temperature 100.2. Hypotensive. Heart rate 97. Continue IV fluids and IV antibiotics Follow up on blood culture results - still pending STEPHANIE Mild creatinine 0.85 -> 1.10 Avoid nephrotoxic agents ?Medication reaction, Levaquin Continue IV fluids Will continue to monitor closely COPD continue home bronchodilators Supple abdominal oxygen Duonebs as needed OA status post right total knee replacement with chronic right knee pain Patient had bone scan done approximately 2 weeks ago and is awaiting results Concern for postoperative knee infection and/or possible loosening of components No evidence of infection, unlikely leukocytosis related to the TKR. Will defer discussion with surgeon at this time. History of DVT patient previously on Coumadin x 6mos DVT prophylaxis therapeutic Lovenox sq Written by Brittany Robles PA-C acting as scribe for Dr. El on 02/08/17 at 10:03. All or portions of this note were transcribed by scribe Brittany Robles PA-C. I, Dr. Kj El personally performed the history, physical exam, and medical decision making; and confirmed the accuracy of the information in the transcribed note. Authenticated by Dr. Kj El on 02/08/17 at 19:13. Brittany Robles Feb 08, 2017 12:11 Kj El MD Feb 08, 2017 19:13
[2017-02-08] MEDS: DILTIAZEM INJ 125 MG in SODIUM CHLORIDE 0.9% INJ 100 ML IV SCH ×2 (12:44→23:12)
[2017-02-08] MEDS ORDERED: DILTIAZEM HCL 25 MG/5 ML VIAL IVP ONE (13:00)
[2017-02-08] MEDS ORDERED: HEPARIN SODIUM - SQ 10,000 UNITS/ML VIAL SQ SCH (14:00)
[2017-02-08] MEDS ORDERED: SODIUM CHLORIDE 0.9% FLUSH 5 ML FLUSH IV FLUSH PRN (14:30)
[2017-02-08] MEDS: RESP: LEVALBUTEROL HYDROCHLORIDE 1.25 MG/3 ML NEB (SCH) NEB ×2 (16:43→19:47)
[2017-02-08] MEDS: RESP: IPRATROPIUM 0.5 MG/2.5 ML NEB NEB SCH ×3 (16:43→23:36)
[2017-02-08] MEDS ORDERED: DIGOXIN 0.5 MG/2 ML VIAL IV PUSH ONE (17:30)
[2017-02-08] MEDS: ENOXAPARIN SODIUM 80 MG/0.8 ML SYRINGE SQ SCH (17:43)
[2017-02-08] MEDS ORDERED: AMLO10 PO (18:01)
[2017-02-08] MEDS: SODIUM CHLORIDE 0.9% FLUSH 5 ML FLUSH IV FLUSH SCH (21:00)
[2017-02-08] MEDS: LACTOBACILLUS ACIDOPHILUS TAB PO SCH (21:29)
[2017-02-08] MEDS: AMITRIPTYLINE HCL 25 MG TAB PO SCH (21:30)
--- NOTE | 2017-02-08 23:30 | MB ---
cc: NARESH SIMS DATE OF CONSULTATION 02/08/17 REASON FOR CONSULTATION Rapid atrial fibrillation. HISTORY OF PRESENT ILLNESS Aisha Kapadia is a 76-year-old woman with a history of three pack per day smoking for 65 years which she quit one month ago. She comes in now with COPD exacerbation and pneumonia. Earlier today, she went into atrial fibrillation with rapid ventricular response. She is on 15 mg of IV Cardizem an hour and her heart rate is still very, very rapid. The patient is unaware of any palpitations. She does not have any ischemic type chest pain. She has some rib soreness that is palpable that is related to coughing. She has a chronic cough, but this had been much worse prior to admission. She had fever before coming into the hospital and has an abnormal chest x-ray and an abnormal chest CT. She has never had heart problems that she knows of in the past. Shortness of breath is improving. She continues to have a cough since admission. PAST MEDICAL HISTORY 1. Hypertension, 2. Hyperlipidemia, 3. COPD, 4. Hypothyroidism, 5. DVT of the right leg after a knee replacement. 6. C. Difficile in the past 7. Degenerative joint disease status post right total knee replacement with chronic pain in her leg for which she is seeing a specialist at [facility]. PAST SURGICAL HISTORY 1. Right knee replacement, 2. Hysterectomy, 3. Cholecystectomy, 4. Cataract surgery 5. Left ear surgery 6. Removal of a bone spur in her right foot ALLERGIES SULFA ADHESIVES FAMILY HISTORY Positive for heart disease with her mother dying of a heart attack. Father of cancer. SOCIAL HISTORY She lives alone. She has a granddaughter who lives in [place] who wants to take her in at some point. Denies alcohol or illicit drug use and quit smoking 1 month ago. PHYSICAL EXAMINATION GENERAL: An obese pleasant white female. She coughs fairly frequently, does not appear to be in acute respiratory distress, but she is just lying in bed. VITAL SIGNS: Charted. She is quite tachycardiac, has been febrile to 101.2 on February 06. HEENT: Exam unremarkable. NECK: No JVD, no bruits. CHEST: Some bilateral fine crackles and extra wheezes. CARDIAC: S1-S2 irregular rate and rhythm, markedly tachycardiac. ABDOMEN: Soft, nontender. EXTREMITIES: Good pedal pulses. No peripheral edema. NEUROLOGIC: She is alert and oriented. LABORATORY DATA Her laboratories are charted. White count has been elevated, but it is coming down. Last potassium was 3.2 but supplemented to 40 mEq p.o. CARDIOLOGY STUDIES EKG shows atrial fibrillation with rapid trigger response. There is no ST-T wave changes. There is no prior EKG to compare with. There are telemetry strips that show that she was in sinus rhythm prior to this. IMPRESSION Acute onset of atrial fibrillation, undoubtedly precipitated and aggravated by her severe pulmonary problem. Ventricular rate is very difficult to control. PLAN I am going to add IV digoxin since Cardizem by itself is not bringing the rate down. I would like to avoid beta linda if I can because of the COPD and the wheezing. Change her anticoagulation to Lovenox 1 mg subcu b.i.d. stop the aspirin and heparin that she is getting now. We will check a 2-D echo Doppler study and we will recheck potassium level in the morning. Further therapy to be determined. I will follow with you. INDICATIONS MD RM Inman/ /5:32 PM /11:16 PM
[2017-02-09] VITALS (12 sets, daily range): BP systolic 101–131; BP diastolic 55–78; PULSE 81–121; RESP 20–22; TEMP 97.3–98.6; O2SAT 90–96
[2017-02-09] MEDS ORDERED: DIGOXIN 0.5 MG/2 ML VIAL IV PUSH ONE (03:00)
[2017-02-09] MEDS: RESP: IPRATROPIUM 0.5 MG/2.5 ML NEB NEB SCH ×6 (03:30→23:20)
[2017-02-09 04:25] LABS: POTASSIUM 3.6 MEQ/L (3.5-5.1)
[2017-02-09 04:28] LABS: BICARBONATE 27.5 MEQ/L (21.0-32.0); MAGNESIUM 1.7 MG/DL (1.5-2.5)
[2017-02-09] MEDS: ENOXAPARIN SODIUM 80 MG/0.8 ML SYRINGE SQ SCH ×2 (05:48→18:08)
[2017-02-09] MEDS: LEVOTHYROXINE SODIUM 25 MCG TAB PO SCH (05:48)
[2017-02-09] MEDS: metroNIDAZOLE 500 MG TAB PO SCH (05:48)
[2017-02-09] MEDS: RESP: LEVALBUTEROL HYDROCHLORIDE 1.25 MG/3 ML NEB (SCH) NEB ×4 (07:49→20:25)
[2017-02-09 08:20] LABS: AUTOMATED NEUTROPHIL # 10.8 TH/MM3 (1.8-7.7); BASOPHIL % 0.2 % (0.0-2.0); EOSINOPHIL # 0.1 TH/MM3 (0-0.4); EOSINOPHIL % 1.1 % (0.0-4.0); HEMATOCRIT 33.2 % (35.0-46.0); LYMPHOCYTE # 1.2 TH/MM3 (1.0-4.8); MEAN CELL VOLUME 81.4 FL (80.0-100.0); MEAN CORPUSCULAR HEMOGLOBIN 26.4 PG (27.0-34.0); MEAN CORPUSCULAR HGB CONC 32.4 % (32.0-36.0); MONO % 6.1 % (0.0-8.0); NEUT % 83.6 % (16.0-70.0); PLATELET COUNT 193 TH/MM3 (150-450); RED BLOOD COUNT 4.08 MIL/MM3 (4.00-5.30); RED CELL DISTRIBUTION WIDTH 15.8 % (11.6-17.2); WHITE BLOOD COUNT 12.9 TH/MM3 (4.0-11.0)
[2017-02-09 08:23] LABS: HEMO FLAGS DIFF FINAL
[2017-02-09] MEDS: SODIUM CHLOR 0.9% 1000 ML INJ 1,000 ML IV SCH (08:37)
[2017-02-09] MEDS: DOCUSATE SODIUM 100 MG CAP PO SCH ×2 (08:38→21:03)
[2017-02-09] MEDS: SODIUM CHLORIDE 0.9% FLUSH 5 ML FLUSH IV FLUSH SCH ×2 (08:38→21:04)
[2017-02-09] MEDS: LACTOBACILLUS ACIDOPHILUS TAB PO SCH ×2 (08:39→21:04)
[2017-02-09] MEDS: PRAVASTATIN SOD 80 MG TAB PO SCH (08:40)
[2017-02-09] MEDS: CHOLECALCIFEROL (VIT D3) 400 UNIT TAB PO SCH (08:40)
[2017-02-09] MEDS: FLUoxetine HCL 20 MG CAP PO SCH (08:40)
[2017-02-09] MEDS: DILTIAZEM INJ 125 MG in SODIUM CHLORIDE 0.9% INJ 100 ML IV SCH (08:41)
--- NOTE | 2017-02-09 09:48 | HHI.PR ---
Subjective Remarks Follow-up on patient with pneumonia. Patient reports that she feels better today. Denies any complaints of pain. Still with persistent cough. Continues to require 4 L oxygen for SOB. Objective Vitals Vital Signs Date Time Temp Pulse Resp B/P Pulse Ox O2 Delivery O2 Flow Rate FiO2 02/09/17 08:00 97.3 83 20 131/71 91 02/09/17 07:51 92 Nasal Cannula 4.00 02/09/17 04:00 98.4 87 20 130/63 94 02/09/17 00:00 98.3 121 20 101/78 95 02/08/17 22:31 18 02/08/17 20:16 135 02/08/17 20:00 98.3 128 20 116/72 92 02/08/17 19:45 94 Nasal Cannula 4.00 02/08/17 18:00 128 02/08/17 16:33 136 02/08/17 16:00 98.7 140 22 102/75 96 02/08/17 14:38 94 Nasal Cannula 4.00 02/08/17 12:00 97.1 96 18 123/68 94 02/08/17 11:40 160 02/08/17 10:01 91 Nasal Cannula 4.00 I/O 02/08/17 02/08/17 02/08/17 02/09/17 02/09/17 02/09/17 07:00 15:00 23:00 07:00 15:00 23:00 Intake Total 1464 ml 48 ml 240 ml 60 ml Output Total 100 ml 200 ml Balance 1364 ml 48 ml 40 ml 60 ml Intake Oral 120 ml 48 ml 240 ml 60 ml IV Total 1344 ml Output Urine Total 100 ml 200 ml # Voids 2 3 1 1 # Bowel Movements 0 1 1 0 Result Diagram: 02/09/17 0744 02/09/17 0405 Objective Remarks GENERAL: This is a well-nourished, well-developed patient, in no apparent distress. Lying in hospital bed. A&Ox3. SKIN: Warm and dry. HEAD: Atraumatic. Normocephalic. EYES: EOMI. CARDIOVASCULAR: Regular rate and rhythm without murmurs, gallops, or rubs. RESPIRATORY: Few scattered rhonchi. GASTROINTESTINAL: Abdomen soft, nondistended. No hepato-splenomegaly, or palpable masses. No guarding. NTTP. MUSCULOSKELETAL: Extremities without clubbing, cyanosis, or edema. No joint effusion, or edema noted. No calf tenderness. Well-healed surgical scar anterior right knee with some mild warmth as well as tenderness to palpation and with ROM. No appreciable effusion or erythema. NEUROLOGICAL: Awake and alert. Able to move all 4 extremities. No focal neurologic deficit. Medications and IVs Current Medications Medications (Trade) Dose Ordered Sig/Nick Route Start Time Stop Time Status Last Admin (NS 1000 ml Inj) 1,000 ml @ 84 mls/hr [id number] IV 02/06/17 16:13 02/09/17 08:37 (NS Flush) 2 ml UNSCH PRN IV FLUSH 02/08/17 14:30 (Tylenol) 650 mg Q4H PRN PO 02/06/17 16:15 02/07/17 13:50 (Zofran Inj) 4 mg Q6H PRN IVP 02/06/17 16:15 02/07/17 10:28 (Colace) 100 mg Q12HR PO 02/06/17 21:00 02/09/17 08:38 (Narcan Inj) 0.4 mg UNSCH PRN IV 02/06/17 16:15 (Flagyl) 500 mg Q8HR PO 02/06/17 16:45 02/09/17 05:48 (Xanax) 0.5 mg BID PRN PO 02/06/17 16:30 02/08/17 17:17 (Elavil) 25 mg HS PO 02/06/17 21:00 02/08/17 21:30 (Vitamin D3) 400 units DAILY PO 02/07/17 09:00 02/09/17 08:40 (PROzac) 20 mg DAILY PO 02/07/17 09:00 02/09/17 08:40 (Synthroid) 25 mcg DAILY@0600 PO 02/07/17 06:00 02/09/17 05:48 (Pravachol) 80 mg DAILY PO 02/07/17 09:00 02/09/17 08:40 Acetaminophen/ Hydrocodone Bitart 1 tab 1 tab Q6H PRN PO 02/06/17 19:45 02/08/17 21:31 Levofloxacin/ Dextrose 150 ml @ 100 mls/hr Q24H IV 02/08/17 11:00 02/08/17 10:42 (Cardizem Inj/NS Inj) 125 ml @ 0 mls/hr TITRATE IV 02/08/17 13:00 02/09/17 08:41 (NS Flush) 2 ml BID IV FLUSH 02/08/17 21:00 (Lovenox Inj) 80 mg Q12H SQ 02/08/17 18:00 02/09/17 05:48 (Norvasc) 10 mg DAILY PO 02/08/17 18:30 02/09/17 08:40 (Lactinex) 1 tab Q12HR PO 02/08/17 21:00 02/09/17 08:39 A/P Assessment and Plan 76-year-old female with a past medical history significant for hypertension, dyslipidemia, hypothyroidism, DVT of the right leg, history of C. 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 New onset atrial fibrillation with RVR - Cardiology consulted, evaluated by Dr. Nickerson. Very much appreciate his assistance. Added IV Digoxin. HR better controlled today, now 87. - Continue IV diltiazem drip. Plan to wean per cardiology's recommendations. - Continue to monitor on telemetry - TSH 1.210. BNP 137 - Cardiac enzymes flat x 3 - Echocardiogram ordered/pending - albuterol discontinued/changed to Xopenex Leukocytosis due to gastroenteritis and PNA - Continuing to improve, white count, 28.3 -> 31.4 -> 19.5 -> 12.9. Patient remains afebrile. - Lactic acid normal - Discontinue Flagyl by mouth - IV antiemetics when necessary - Repeat CBC in a.m. Pneumonia - Improving clinically - Continue IV Levaquin 750 mg daily - Maintain on oxygen therapy - Patient evaluated by Dr. Palm, very much appreciate his assistance. Agrees with above plan. Plan to follow-up with him in a week in the office following discharge. Sepsis - Resolving - Patient met sepsis criteria with tachycardia, fever and elevated white count. - Continue IV antibiotics - Cultures show no growth x 48hrs Hypertension - Patient with a history of hypertension that she did not disclose the time of her original history. Also on Norvasc at home which was not stated in the history or on her med rec. Nursing staff confirmed medication with patient's pharmacy. Norvasc 10 mg resumed yesterday. - BP well-controlled at present - Continue with Norvasc and monitor BP Anemia - mild - Possibly dilutional - Iron studies ordered STEPHANIE - Resolved COPD exacerbated by pneumonia - Maintain supplemental oxygen.. O2 sats 91% on 4LNC. 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 El on 02/08/17 at 9:15. All or portions of this note were transcribed by scribe Brittany Robles PA-C. I, Dr. Kj El personally performed the history, physical exam, and medical decision making; and confirmed the accuracy of the information in the transcribed note. Authenticated by Dr. Kj El on 02/09/17 at 10:11. Brittany Robles Feb 09, 2017 09:48 Kj El MD Feb 09, 2017 10:11
[2017-02-09] MEDS: LEVOFLOXACIN 750 MG PREMIX INJ 150 ML IV SCH (11:47)
--- NOTE | 2017-02-09 14:41 | PD.CARD.PN ---
Subjective Subjective Remarks SOB slightly better Objective Medications Current Medications Medications (Trade) Dose Ordered Sig/Nick Route Start Time Stop Time Status Last Admin (NS Flush) 2 ml UNSCH PRN IV FLUSH 02/08/17 14:30 (Tylenol) 650 mg Q4H PRN PO 02/06/17 16:15 02/07/17 13:50 (Zofran Inj) 4 mg Q6H PRN IVP 02/06/17 16:15 02/07/17 10:28 (Colace) 100 mg Q12HR PO 02/06/17 21:00 02/09/17 08:38 (Narcan Inj) 0.4 mg UNSCH PRN IV 02/06/17 16:15 (Xanax) 0.5 mg BID PRN PO 02/06/17 16:30 02/08/17 17:17 (Elavil) 25 mg HS PO 02/06/17 21:00 02/08/17 21:30 (Vitamin D3) 400 units DAILY PO 02/07/17 09:00 02/09/17 08:40 (PROzac) 20 mg DAILY PO 02/07/17 09:00 02/09/17 08:40 (Synthroid) 25 mcg DAILY@0600 PO 02/07/17 06:00 02/09/17 05:48 (Pravachol) 80 mg DAILY PO 02/07/17 09:00 02/09/17 08:40 Acetaminophen/ Hydrocodone Bitart 1 tab 1 tab Q6H PRN PO 02/06/17 19:45 02/08/17 21:31 Levofloxacin/ Dextrose 150 ml @ 100 mls/hr Q24H IV 02/08/17 11:00 02/09/17 11:47 (Cardizem Inj/NS Inj) 125 ml @ 0 mls/hr TITRATE IV 02/08/17 13:00 02/09/17 08:41 (NS Flush) 2 ml BID IV FLUSH 02/08/17 21:00 (Lovenox Inj) 80 mg Q12H SQ 02/08/17 18:00 02/09/17 05:48 (Norvasc) 10 mg DAILY PO 02/08/17 18:30 02/09/17 08:40 (Lactinex) 1 tab Q12HR PO 02/08/17 21:00 02/09/17 08:39 Vital Signs / I&O Vital Signs Date Time Temp Pulse Resp B/P Pulse Ox O2 Delivery O2 Flow Rate FiO2 02/09/17 12:57 85 02/09/17 12:00 97.4 83 22 118/57 96 02/09/17 08:00 97.3 83 20 131/71 91 02/09/17 07:51 92 Nasal Cannula 4.00 02/09/17 06:45 81 02/09/17 04:00 98.4 87 20 130/63 94 02/09/17 00:00 98.3 121 20 101/78 95 02/08/17 22:31 18 02/08/17 20:16 135 02/08/17 20:00 98.3 128 20 116/72 92 02/08/17 19:45 94 Nasal Cannula 4.00 02/08/17 18:00 128 02/08/17 16:33 136 02/08/17 16:00 98.7 140 22 102/75 96 I/O 02/08/17 02/08/17 02/08/17 02/09/17 02/09/17 02/09/17 07:00 15:00 23:00 07:00 15:00 23:00 Intake Total 1464 ml 48 ml 240 ml 60 ml 500 ml Output Total 100 ml 200 ml Balance 1364 ml 48 ml 40 ml 60 ml 500 ml Intake Oral 120 ml 48 ml 240 ml 60 ml 500 ml IV Total 1344 ml Output Urine Total 100 ml 200 ml # Voids 2 3 1 1 2 # Bowel Movements 0 1 1 0 1 Physical Exam Alert Chest B/L wheezing CV S1 S2 slightly irregular (EKG pending) No edema Laboratory Laboratory Tests Test 02/08/17 02/08/17 02/09/17 02/09/17 17:05 22:12 04:05 07:44 Troponin I LESS THAN 0.02 0.02 NG/ML 0.03 NG/ML NG/ML B-Type Natriuretic Peptide 137 PG/ML Sodium Level 141 MEQ/L Potassium Level 3.6 MEQ/L Chloride Level 105 MEQ/L Carbon Dioxide Level 27.5 MEQ/L Anion Gap 9 MEQ/L Blood Urea Nitrogen 17 MG/DL Creatinine 0.70 MG/DL Estimat Glomerular Filtration 81 ML/MIN Rate Random Glucose 123 MG/DL Calcium Level 8.7 MG/DL Magnesium Level 1.7 MG/DL White Blood Count 12.9 TH/MM3 Red Blood Count 4.08 MIL/MM3 Hemoglobin 10.8 GM/DL Hematocrit 33.2 % Mean Corpuscular Volume 81.4 FL Mean Corpuscular Hemoglobin 26.4 PG Mean Corpuscular Hemoglobin 32.4 % Concent Red Cell Distribution Width 15.8 % Platelet Count 193 TH/MM3 Mean Platelet Volume 10.7 FL Neutrophils (%) (Auto) 83.6 % Lymphocytes (%) (Auto) 9.0 % Monocytes (%) (Auto) 6.1 % Eosinophils (%) (Auto) 1.1 % Basophils (%) (Auto) 0.2 % Neutrophils # (Auto) 10.8 TH/MM3 Lymphocytes # (Auto) 1.2 TH/MM3 Monocytes # (Auto) 0.8 TH/MM3 Eosinophils # (Auto) 0.1 TH/MM3 Basophils # (Auto) 0.0 TH/MM3 CBC Comment DIFF FINAL Differential Comment Assessment and Plan Problem List: (1) COPD (chronic obstructive pulmonary disease) (2) Atrial fibrillation with rapid ventricular response Assessment and Plan: Heart rate nl. EKG pending. FREDDY espinoza ordered Rambo Nickerson MD Feb 09, 2017 14:41
[2017-02-09] MEDS ORDERED: DILTIAZEM INJ 125 MG in SODIUM CHLORIDE 0.9% INJ 100 ML IV SCH (14:45)
[2017-02-09] MEDS ORDERED: POTASSIUM CHLORIDE 20 MEQ CONTROLLED RELEASE TAB PO ONE (15:00)
[2017-02-09 15:10] LABS: TRANSFERRIN IRON PROFILE 148 MG/DL (200-360)
[2017-02-09 15:13] LABS: FERRITIN 208 NG/ML (8-252)
[2017-02-09] MEDS: ONDANSETRON HCL 4 MG/2 ML VIAL IVP PRN (15:20)
[2017-02-09] MEDS: DILTIAZEM-CD 240 MG CAP ER PO SCH (15:20)
--- NOTE | 2017-02-09 15:58 | EKG ---
Date Performed: 02/08/2017 Time Performed: 17:00:54 PTAGE: 76 years EKG: Atrial fibrillation with rapid ventricular response, which is new from the prior tracing Se ptal ST-T changes are nonspecific Abnormal ECG PREVIOUS TRACING : 10/07/2015 09.41 DOCTOR: Rambo Nickerson Interpretating Date/Time 02/09/2017 15:57:20
--- NOTE | 2017-02-09 20:02 | EC ---
Study Study Date:02/09/2017 STUDY CONCLUSIONS SUMMARY - Left ventricle: The cavity size was normal. Wall thickness was normal. Systolic function was normal. The estimated ejection fraction was 65%. Wall motion was normal; there were no regional wall motion abnormalities. - Mitral valve: Mild regurgitation. - Tricuspid valve: Mild regurgitation. - Pulmonary arteries: Systolic pressure was mildly increased. PA peak pressure: 43mm Hg (S). If LV function is below 40, please consider prescribing an ACEI or ARB or document rationale for non-use. PROCEDURE DATA STUDY STATUS: Elective. Procedure: Transthoracic echocardiography. Image quality was good. Scanning was performed from the parasternal, apical, and subcostal acoustic windows. Study completion: The patient tolerated the procedure well. Transthoracic echocardiography. M-mode, complete 2D, complete spectral Doppler, and color Doppler. Height: Height: 66in. Weight: Weight: 196.6lb. Body mass index: BMI: 31.8kg/m^2. Body surface area: BSA: 1.99m^2. Patient status: Inpatient. CARDIAC ANATOMY LEFT VENTRICLE: The cavity size was normal. Wall thickness was normal. Systolic function was normal. The estimated ejection fraction was 65%. Wall motion was normal; there were no regional wall motion abnormalities. AORTIC VALVE: Trileaflet; normal thickness leaflets. Doppler: Transvalvular velocity was within the normal range. There was no stenosis. No regurgitation. Valve area: 2.57cm^2(VTI). Indexed valve area: 1.29cm^2/m^2 (VTI). Valve area: 2.66cm^2 (Vmax). Indexed valve area: 1.34cm^2/m^2 (Vmax). Mean gradient: 6mm Hg (S). Peak gradient: 12mm Hg (S). AORTA: Aortic root: The aortic root was normal in size. MITRAL VALVE: Structurally normal valve. Doppler: Transvalvular velocity was within the normal range. There was no evidence for stenosis. Mild regurgitation. Peak gradient: 5mm Hg (D). LEFT ATRIUM: The atrium was normal in size. RIGHT VENTRICLE: The cavity size was normal. Wall thickness was normal. PULMONIC VALVE: Doppler: Transvalvular velocity was within the normal range. There was no evidence for stenosis. No regurgitation. TRICUSPID VALVE: Structurally normal valve. Doppler: Transvalvular velocity was within the normal range. Mild regurgitation. PULMONARY ARTERY: The main pulmonary artery was normal-sized. Systolic pressure was mildly increased. RIGHT ATRIUM: The atrium was normal in size. PERICARDIUM: There was no pericardial effusion. SYSTEMIC VEINS: Inferior vena cava: The vessel was normal in size. Patient weight: 196.6lb _Ejection fraction:_ 65-75% _Fractional shortening:_ 32% up to 5Kg 5-11.5Kg 11.6-22.9Kg 23-45Kg 45-57Kg Aortic Root 7-13 <17 13-22 17-27 17-27 LA diam 6-13 <23 24-38 33-47 37-40 RVID 10-17 7-15 7-15 7-18 8-17 LVIDd 12-22 <32 24-38 33-47 37-40 LVPW 2-4 3-6 5-7 6-8 7-8 IVS 2-4 3-6 5-7 6-8 7-8 BASIC MEASUREMENTS ADULT NORMAL Left ventricle LV internal dimension, ED, chordal 46.2 mm 43-52 level, PLAX LV internal dimension, ES, chordal 29.3 mm 23-38 level, PLAX Fractional shortening, chordal level, 37 % >29 PLAX LV posterior wall thickness, ED 11.3 mm IVS/LVPW ratio, ED 1 <1.3 Ventricular septum Septal thickness, ED 11.3 mm Aortic valve Leaflet separation 20 mm 15-26 Aorta Root diameter, ED 29 mm Left atrium Anterior-posterior dimension 35 mm Anterior-posterior dimension index 1.76 cm/m^2 <2.2 BASIC MEASUREMENTS ADULT NORMAL Aortic valve Leaflet separation 20 mm 15-26 DOPPLER MEASUREMENTS ADULT NORMAL Main pulmonary artery Pressure, S *43 mm Hg =30 Aortic valve Peak velocity, S 175 cm/s Mean velocity, S 113 cm/s VTI, S 30.2 cm Mean gradient, S 6 mm Hg Peak gradient, S 12 mm Hg Valve area, VTI 2.57 cm^2 Valve area index, VTI 1.29 cm^2/m^2 Valve area, Vmax 2.66 cm^2 Valve area index, Vmax 1.34 cm^2/m^2 Mitral valve Peak E-wave velocity 113 cm/s Peak A-wave velocity 74 cm/s Deceleration time 190 ms 150-230 Peak gradient, D 5 mm Hg Peak E/A ratio 1.5 Tricuspid valve Regurgitant peak velocity 301 cm/s Peak RV-RA gradient, S 36 mm Hg Maximal regurgitant velocity 301 cm/s Systemic veins Estimated CVP 10 mm Hg Right ventricle RV pressure, S *46 mm Hg <30 Pulmonic valve Peak velocity, S 82 cm/s LEGEND: Mean values are shown as u=mean value. Asterisk (*) grimaldo values outside specified normal range. Prepared and signed by Rosalba Cee [id number]
[2017-02-09] MEDS: ACETAMINOPHEN/HYDROcodone 325 MG/5 MG TAB PO PRN (21:04)
[2017-02-09] MEDS: AMITRIPTYLINE HCL 25 MG TAB PO SCH (21:04)
[2017-02-10] VITALS (10 sets, daily range): BP systolic 105–164; BP diastolic 55–83; PULSE 80–101; RESP 20–26; TEMP 96.5–98.8; O2SAT 92–95
[2017-02-10] MEDS: RESP: IPRATROPIUM 0.5 MG/2.5 ML NEB NEB SCH ×5 (03:36→19:40)
[2017-02-10] MEDS: LEVOTHYROXINE SODIUM 25 MCG TAB PO SCH (06:26)
[2017-02-10] MEDS: ENOXAPARIN SODIUM 80 MG/0.8 ML SYRINGE SQ SCH (06:26)
[2017-02-10 08:09] LABS: AUTOMATED NEUTROPHIL # 9.5 TH/MM3 (1.8-7.7); BASOPHIL % 0.2 % (0.0-2.0); EOSINOPHIL # 0.1 TH/MM3 (0-0.4); EOSINOPHIL % 0.6 % (0.0-4.0); HEMATOCRIT 34.8 % (35.0-46.0); LYMPH % 9.7 % (9.0-44.0); LYMPHOCYTE # 1.1 TH/MM3 (1.0-4.8); MEAN CELL VOLUME 79.7 FL (80.0-100.0); MEAN CORPUSCULAR HEMOGLOBIN 26.4 PG (27.0-34.0); MEAN CORPUSCULAR HGB CONC 33.1 % (32.0-36.0); MONO % 7.1 % (0.0-8.0); NEUT % 82.4 % (16.0-70.0); PLATELET COUNT 231 TH/MM3 (150-450); RED BLOOD COUNT 4.37 MIL/MM3 (4.00-5.30); RED CELL DISTRIBUTION WIDTH 15.4 % (11.6-17.2); WHITE BLOOD COUNT 11.5 TH/MM3 (4.0-11.0)
[2017-02-10 08:10] LABS: HEMO FLAGS DIFF FINAL
[2017-02-10] MEDS: RESP: LEVALBUTEROL HYDROCHLORIDE 1.25 MG/3 ML NEB (SCH) NEB ×4 (08:17→19:40)
--- NOTE | 2017-02-10 08:51 | HHI.PR ---
Subjective Remarks Follow up on patient with pneumonia and atrial fibrillation. Patient reports persistent cough with little sputum production. Feels her chest is tight. No complaints of chest pain. Denies any issues overnight. No fever. Denies any abdominal pain, nausea/vomiting or diarrhea. She reports having bowel movement. Objective Vitals Vital Signs Date Time Temp Pulse Resp B/P Pulse Ox O2 Delivery O2 Flow Rate FiO2 02/10/17 08:18 94 Nasal Cannula 5.00 02/10/17 04:08 98.6 101 26 164/81 92 02/10/17 00:19 98.0 80 24 127/82 94 02/09/17 23:20 93 Nasal Cannula 5.00 02/09/17 22:04 20 02/09/17 21:21 98.0 84 22 109/55 90 02/09/17 20:40 93 Nasal Cannula 5.00 02/09/17 20:25 90 Nasal Cannula 4.00 02/09/17 20:00 92 Nasal Cannula 3.00 02/09/17 16:41 92 Nasal Cannula 4.00 02/09/17 16:00 98.6 84 20 131/65 95 02/09/17 12:57 85 02/09/17 12:00 97.4 83 22 118/57 96 I/O 02/09/17 02/09/17 02/09/17 02/10/17 02/10/17 02/10/17 07:00 15:00 23:00 07:00 15:00 23:00 Intake Total 60 ml 500 ml Balance 60 ml 500 ml Intake Oral 60 ml 500 ml # Voids 1 2 1 2 # Bowel Movements 0 1 Result Diagram: 02/10/17 0740 02/09/17 0405 Objective Remarks GENERAL: This is a well-nourished, well-developed patient, in no apparent distress. Sitting up in bedside chair undergoing breathing treatment. A&Ox3. SKIN: Warm and dry. HEAD: Atraumatic. Normocephalic. EYES: EOMI. CARDIOVASCULAR: Tachycardic. No murmurs, gallops, or rubs. RESPIRATORY: Scattered wheezing. Breath sounds symmetrical. GASTROINTESTINAL: Abdomen soft, nondistended. No hepato-splenomegaly, or palpable masses. No guarding. NTTP. MUSCULOSKELETAL: Extremities without clubbing, cyanosis, or edema. No joint effusion, or edema noted. No calf tenderness. Well-healed surgical scar anterior right knee with some mild warmth as well as tenderness to palpation and with ROM. No appreciable effusion or erythema. NEUROLOGICAL: Awake and alert. Able to move all 4 extremities. No focal neurologic deficit. Medications and IVs Current Medications Medications (Trade) Dose Ordered Sig/Nick Route Start Time Stop Time Status Last Admin (NS Flush) 2 ml UNSCH PRN IV FLUSH 02/08/17 14:30 (Tylenol) 650 mg Q4H PRN PO 02/06/17 16:15 02/07/17 13:50 (Zofran Inj) 4 mg Q6H PRN IVP 02/06/17 16:15 02/09/17 15:20 (Colace) 100 mg Q12HR PO 02/06/17 21:00 02/09/17 21:03 (Narcan Inj) 0.4 mg UNSCH PRN IV 02/06/17 16:15 (Xanax) 0.5 mg BID PRN PO 02/06/17 16:30 02/08/17 17:17 (Elavil) 25 mg HS PO 02/06/17 21:00 02/09/17 21:04 (Vitamin D3) 400 units DAILY PO 02/07/17 09:00 02/09/17 08:40 (PROzac) 20 mg DAILY PO 02/07/17 09:00 02/09/17 08:40 (Synthroid) 25 mcg DAILY@0600 PO 02/07/17 06:00 02/10/17 06:26 (Pravachol) 80 mg DAILY PO 02/07/17 09:00 02/09/17 08:40 Acetaminophen/ Hydrocodone Bitart 1 tab 1 tab Q6H PRN PO 02/06/17 19:45 02/09/17 21:04 (Levaquin 750 Mg Premix Inj) 150 ml @ 100 mls/hr Q24H IV 02/08/17 11:00 02/09/17 11:47 (NS Flush) 2 ml BID IV FLUSH 02/08/17 21:00 02/09/17 21:04 (Lovenox Inj) 80 mg Q12H SQ 02/08/17 18:00 02/10/17 06:26 (Norvasc) 10 mg DAILY PO 02/08/17 18:30 02/09/17 08:40 (Lactinex) 1 tab Q12HR PO 02/08/17 21:00 02/09/17 21:04 Diltiazem HCl 240 mg 240 mg DAILY PO 02/09/17 15:00 02/09/17 15:20 (Cardizem Inj/NS Inj) 125 ml @ 0 mls/hr TITRATE IV 02/09/17 14:45 A/P Assessment and Plan 76-year-old female with a past medical history significant for hypertension, dyslipidemia, hypothyroidism, DVT of the right leg, history of C. 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 New onset atrial fibrillation with RVR - Cardiology consulted, evaluated by Dr. Nickerson. Very much appreciate his assistance. PO Cardizem started and now off of IV Dilt drip. HR 90. - Continue to monitor on telemetry - TSH 1.210. BNP 137 - Cardiac enzymes flat x 3 - Echocardiogram completed and shows EF 65%, normal wall motion, mild mitral and tricuspid valve regurgitation and mildly increased systolic pressure with PA peak pressure 43mm Hg - albuterol discontinued/changed to Xopenex - continue on therapeutic Lovenox. Begin Coumadin with pharmacy to monitor and adjust dose. Leukocytosis due to gastroenteritis and PNA - Continuing to improve, white count, 28.3 -> 31.4 -> 19.5 -> 12.9 -> 11.5. Patient remains afebrile. - Lactic acid normal - IV antiemetics when necessary - Repeat CBC in a.m. Pneumonia - Improving clinically but still with wheezing and chest tightness - Continue IV Levaquin 750 mg daily - Maintain on oxygen therapy - Patient evaluated by Dr. Palm, very much appreciate his assistance. Agrees with above plan. Plan to follow-up with him in a week in the office following discharge. - begin IV steroids 40mg q8h Sepsis - Resolving - Patient met sepsis criteria with tachycardia, fever and elevated white count. - Continue IV antibiotics - Cultures show no growth x 4 days Hypertension - Patient with a history of hypertension that she did not disclose the time of her original history. Also on Norvasc at home which was not stated in the history or on her med rec. Nursing staff confirmed medication with patient's pharmacy. Norvasc 10 mg resumed. - BP well-controlled at present - Continue with Norvasc and monitor BP Anemia - mild, improving - Iron studies indicative of iron deficiency anemia. Begin by mouth repletion. STEPHANIE - Resolved COPD exacerbated by pneumonia - Maintain supplemental oxygen.. O2 sats 94% on 5LNC. 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 El on 02/10/17 at 08:41. . All or portions of this note were transcribed by scribe Brittany Robles PA-C. I, Dr. Kj El personally performed the history, physical exam, and medical decision making; and confirmed the accuracy of the information in the transcribed note. Authenticated by Dr. Kj El on 02/10/17 at 13:35. Brittany Robles Feb 10, 2017 08:51 Kj El MD Feb 10, 2017 13:35
[2017-02-10] MEDS: DOCUSATE SODIUM 100 MG CAP PO SCH ×2 (09:30→19:47)
[2017-02-10] MEDS: LACTOBACILLUS ACIDOPHILUS TAB PO SCH ×2 (09:30→19:47)
[2017-02-10] MEDS: PRAVASTATIN SOD 80 MG TAB PO SCH (09:30)
[2017-02-10] MEDS: FLUoxetine HCL 20 MG CAP PO SCH (09:30)
[2017-02-10] MEDS: CHOLECALCIFEROL (VIT D3) 400 UNIT TAB PO SCH (09:30)
[2017-02-10] MEDS: DILTIAZEM-CD 240 MG CAP ER PO SCH (09:31)
[2017-02-10] MEDS: SODIUM CHLORIDE 0.9% FLUSH 5 ML FLUSH IV FLUSH SCH ×2 (09:38→19:48)
[2017-02-10] MEDS: methylPREDNISolone SOD SUCC 40 MG/1 ML VIAL IVP SCH ×2 (09:38→17:00)
[2017-02-10 09:55] LABS: POTASSIUM 4.2 MEQ/L (3.5-5.1)
[2017-02-10 09:58] LABS: BICARBONATE 26.1 MEQ/L (21.0-32.0); MAGNESIUM 1.9 MG/DL (1.5-2.5)
[2017-02-10] MEDS: LEVOFLOXACIN 750 MG PREMIX INJ 150 ML IV SCH (11:24)
[2017-02-10] MEDS: FERROUS SULFATE 325 MG (65 MG ELEMENTAL IRON) TAB PO SCH ×2 (14:07→19:47)
[2017-02-10] MEDS: ASCORBIC ACID 500 MG TAB PO SCH ×2 (14:07→19:47)
--- NOTE | 2017-02-10 14:26 | PD.CARD.PN ---
Subjective Subjective Remarks no new complaints Objective Medications Current Medications Medications (Trade) Dose Ordered Sig/Nick Route Start Time Stop Time Status Last Admin (NS Flush) 2 ml UNSCH PRN IV FLUSH 02/08/17 14:30 02/10/17 11:24 (Tylenol) 650 mg Q4H PRN PO 02/06/17 16:15 02/07/17 13:50 (Zofran Inj) 4 mg Q6H PRN IVP 02/06/17 16:15 02/09/17 15:20 (Colace) 100 mg Q12HR PO 02/06/17 21:00 02/10/17 09:30 (Narcan Inj) 0.4 mg UNSCH PRN IV 02/06/17 16:15 (Xanax) 0.5 mg BID PRN PO 02/06/17 16:30 02/08/17 17:17 (Elavil) 25 mg HS PO 02/06/17 21:00 02/09/17 21:04 (Vitamin D3) 400 units DAILY PO 02/07/17 09:00 02/10/17 09:30 (PROzac) 20 mg DAILY PO 02/07/17 09:00 02/10/17 09:30 (Synthroid) 25 mcg DAILY@0600 PO 02/07/17 06:00 02/10/17 06:26 (Pravachol) 80 mg DAILY PO 02/07/17 09:00 02/10/17 09:30 Acetaminophen/ Hydrocodone Bitart 1 tab 1 tab Q6H PRN PO 02/06/17 19:45 02/09/17 21:04 (Levaquin 750 Mg Premix Inj) 150 ml @ 100 mls/hr Q24H IV 02/08/17 11:00 02/10/17 11:24 (NS Flush) 2 ml BID IV FLUSH 02/08/17 21:00 02/10/17 09:38 (Lovenox Inj) 80 mg Q12H SQ 02/08/17 18:00 02/10/17 06:26 (Norvasc) 10 mg DAILY PO 02/08/17 18:30 02/10/17 09:31 (Lactinex) 1 tab Q12HR PO 02/08/17 21:00 02/10/17 09:30 Diltiazem HCl 240 mg 240 mg DAILY PO 02/09/17 15:00 02/10/17 09:31 (Cardizem Inj/NS Inj) 125 ml @ 0 mls/hr TITRATE IV 02/09/17 14:45 (SoluMEDROL INJ) 40 mg Q8H IVP 02/10/17 09:00 02/10/17 09:38 (Ferrous Sulfate) 325 mg BID PO 02/10/17 14:00 02/10/17 14:07 (Vitamin C) 500 mg BID PO 02/10/17 14:00 02/10/17 14:07 Vital Signs / I&O Vital Signs Date Time Temp Pulse Resp B/P Pulse Ox O2 Delivery O2 Flow Rate FiO2 02/10/17 12:00 96.5 85 21 125/72 94 02/10/17 08:18 94 Nasal Cannula 5.00 02/10/17 08:00 96.9 86 23 130/80 95 02/10/17 08:00 Nasal Cannula 3.00 02/10/17 06:00 81 02/10/17 04:08 98.6 101 26 164/81 92 02/10/17 00:19 98.0 80 24 127/82 94 02/09/17 23:20 93 Nasal Cannula 5.00 02/09/17 22:04 20 02/09/17 21:21 98.0 84 22 109/55 90 02/09/17 20:40 93 Nasal Cannula 5.00 02/09/17 20:25 90 Nasal Cannula 4.00 02/09/17 20:00 92 Nasal Cannula 3.00 02/09/17 16:41 92 Nasal Cannula 4.00 02/09/17 16:00 98.6 84 20 131/65 95 I/O 02/09/17 02/09/17 02/09/17 02/10/17 02/10/17 02/10/17 07:00 15:00 23:00 07:00 15:00 23:00 Intake Total 60 ml 500 ml 200 ml Balance 60 ml 500 ml 200 ml Intake Oral 60 ml 500 ml 200 ml # Voids 1 2 1 2 # Bowel Movements 0 1 Physical Exam Alert, coarse cough Chest B/L wheezing better CV S1 S2 RRR No edema Laboratory Laboratory Tests Test 02/10/17 02/10/17 07:40 09:39 White Blood Count 11.5 TH/MM3 Red Blood Count 4.37 MIL/MM3 Hemoglobin 11.5 GM/DL Hematocrit 34.8 % Mean Corpuscular Volume 79.7 FL Mean Corpuscular Hemoglobin 26.4 PG Mean Corpuscular Hemoglobin 33.1 % Concent Red Cell Distribution Width 15.4 % Platelet Count 231 TH/MM3 Mean Platelet Volume 10.2 FL Neutrophils (%) (Auto) 82.4 % Lymphocytes (%) (Auto) 9.7 % Monocytes (%) (Auto) 7.1 % Eosinophils (%) (Auto) 0.6 % Basophils (%) (Auto) 0.2 % Neutrophils # (Auto) 9.5 TH/MM3 Lymphocytes # (Auto) 1.1 TH/MM3 Monocytes # (Auto) 0.8 TH/MM3 Eosinophils # (Auto) 0.1 TH/MM3 Basophils # (Auto) 0.0 TH/MM3 CBC Comment DIFF FINAL Differential Comment Sodium Level 139 MEQ/L Potassium Level 4.2 MEQ/L Chloride Level 105 MEQ/L Carbon Dioxide Level 26.1 MEQ/L Anion Gap 8 MEQ/L Blood Urea Nitrogen 10 MG/DL Creatinine 0.64 MG/DL Estimat Glomerular Filtration 90 ML/MIN Rate Random Glucose 168 MG/DL Calcium Level 9.1 MG/DL Magnesium Level 1.9 MG/DL Assessment and Plan Problem List: (1) COPD (chronic obstructive pulmonary disease) (2) Atrial fibrillation with rapid ventricular response Assessment and Plan: was in afib 24 hours. In sinus rhythm. Will change to 1 ASA daily. I am signed off. Rambo Nickerson MD Feb 10, 2017 14:26
--- NOTE | 2017-02-10 14:55 | EKG ---
Date Performed: 02/09/2017 Time Performed: 15:56:44 PTAGE: 76 years EKG: Possible ectopic atrial rhythm with PVC(s). Poor R wave progression - probable normal varia nt Septal T wave changes are nonspecific Compared to previous tracing, patient is no longer in rapid atrial fibrillation Borderline ECG PREVIOUS TRACING : 02/08/2017 17.00 DOCTOR: Rambo Nickerson Interpretating Date/Time 02/10/2017 14:54:06
[2017-02-10] MEDS ORDERED: WARFARIN SOD 5 MG TAB PO SCH (16:00)
[2017-02-10] MEDS: AMITRIPTYLINE HCL 25 MG TAB PO SCH (19:47)
[2017-02-10] MEDS: ALPRAZolam 0.5 MG TAB PO PRN (19:47)
[2017-02-10] MEDS: HEPARIN SODIUM - SQ 10,000 UNITS/ML VIAL SQ SCH (22:00)
[2017-02-11] VITALS (11 sets, daily range): BP systolic 122–147; BP diastolic 67–76; PULSE 82–93; RESP 16–24; TEMP 96.3–98.9; O2SAT 92–97
[2017-02-11] MEDS: methylPREDNISolone SOD SUCC 40 MG/1 ML VIAL IVP SCH ×3 (01:04→21:04)
[2017-02-11] MEDS: RESP: IPRATROPIUM 0.5 MG/2.5 ML NEB NEB SCH ×7 (03:29→23:23)
[2017-02-11] MEDS: HEPARIN SODIUM - SQ 10,000 UNITS/ML VIAL SQ SCH ×3 (05:19→21:04)
[2017-02-11] MEDS: LEVOTHYROXINE SODIUM 25 MCG TAB PO SCH (05:20)
[2017-02-11 06:31] LABS: AUTOMATED NEUTROPHIL # 8.9 TH/MM3 (1.8-7.7); BASOPHIL % 0.1 % (0.0-2.0); EOSINOPHIL % 0.1 % (0.0-4.0); HEMATOCRIT 33.7 % (35.0-46.0); LYMPH % 5.2 % (9.0-44.0); LYMPHOCYTE # 0.5 TH/MM3 (1.0-4.8); MEAN CELL VOLUME 80.3 FL (80.0-100.0); MEAN CORPUSCULAR HEMOGLOBIN 26.7 PG (27.0-34.0); MEAN CORPUSCULAR HGB CONC 33.3 % (32.0-36.0); MONO % 1.8 % (0.0-8.0); NEUT % 92.8 % (16.0-70.0); PLATELET COUNT 258 TH/MM3 (150-450); RED CELL DISTRIBUTION WIDTH 15.3 % (11.6-17.2); WHITE BLOOD COUNT 9.6 TH/MM3 (4.0-11.0)
[2017-02-11 06:36] LABS: HEMO FLAGS DIFF FINAL
[2017-02-11] MEDS: RESP: LEVALBUTEROL HYDROCHLORIDE 1.25 MG/3 ML NEB (SCH) NEB ×4 (07:27→19:55)
[2017-02-11] MEDS: FLUoxetine HCL 20 MG CAP PO SCH (08:38)
[2017-02-11] MEDS: CHOLECALCIFEROL (VIT D3) 400 UNIT TAB PO SCH (08:39)
[2017-02-11] MEDS: PRAVASTATIN SOD 80 MG TAB PO SCH (08:39)
[2017-02-11] MEDS: DILTIAZEM-CD 240 MG CAP ER PO SCH (08:39)
[2017-02-11] MEDS: LACTOBACILLUS ACIDOPHILUS TAB PO SCH ×2 (08:40→21:03)
[2017-02-11] MEDS: FERROUS SULFATE 325 MG (65 MG ELEMENTAL IRON) TAB PO SCH ×2 (08:40→21:03)
[2017-02-11] MEDS: ASCORBIC ACID 500 MG TAB PO SCH ×2 (08:40→21:03)
[2017-02-11] MEDS: ASPIRIN EC 81 MG TABEC PO SCH (08:40)
[2017-02-11] MEDS: DOCUSATE SODIUM 100 MG CAP PO SCH ×2 (08:40→21:03)
[2017-02-11] MEDS: SODIUM CHLORIDE 0.9% FLUSH 5 ML FLUSH IV FLUSH SCH ×2 (09:00→21:04)
--- NOTE | 2017-02-11 11:15 | HHI.PR ---
Subjective Remarks Follow-up on patient with pneumonia and atrial fibrillation. Patient states she 's feeling better. Less shortness of breath. Still with cough but this has improved. Does report waking up in the night drenched in sweats and had to change her hospital gown. No complaints of chest pain or abdominal pain. Patient reports today that she's been an emotional wreck due to her unhappiness with her chronic knee pain following her total knee replacement and now this hospitalization. She has plans to move to [place] to live with her granddaughter in the very near future as a result of her declining health status. Objective Vitals Vital Signs Date Time Temp Pulse Resp B/P Pulse Ox O2 Delivery O2 Flow Rate FiO2 02/11/17 08:00 89 02/11/17 08:00 95 Nasal Cannula 3.00 02/11/17 08:00 97.8 88 18 142/76 96 02/11/17 07:30 96 Nasal Cannula 4.50 02/11/17 04:18 97.0 93 24 147/76 94 02/11/17 00:06 98.9 89 20 138/73 92 02/10/17 20:27 98.8 91 23 140/83 93 02/10/17 20:00 84 02/10/17 20:00 93 Nasal Cannula 3.00 02/10/17 19:42 93 Nasal Cannula 4.00 02/10/17 16:00 97.0 86 20 105/55 95 02/10/17 12:00 96.5 85 21 125/72 94 I/O 02/10/17 02/10/17 02/10/17 02/11/17 02/11/17 02/11/17 07:00 15:00 23:00 07:00 15:00 23:00 Intake Total 300 ml Balance 300 ml Intake Oral 300 ml # Voids 2 1 1 # Bowel Movements 0 Result Diagram: 02/11/17 0600 02/10/17 0939 Objective Remarks GENERAL: This is a well-nourished, well-developed patient, in no apparent distress. Sitting up in bedside chair undergoing breathing treatment. A&Ox3. SKIN: Warm and dry. HEAD: Atraumatic. Normocephalic. EYES: EOMI. CARDIOVASCULAR: Tachycardic. No murmurs, gallops, or rubs. RESPIRATORY: Scattered rhonchi. Breath sounds symmetrical. GASTROINTESTINAL: Abdomen soft, nondistended. No hepato-splenomegaly, or palpable masses. No guarding. NTTP. MUSCULOSKELETAL: Extremities without clubbing, cyanosis, or edema. No joint effusion, or edema noted. No calf tenderness. Well-healed surgical scar anterior right knee with some mild warmth as well as tenderness to palpation and with ROM. No appreciable effusion or erythema. NEUROLOGICAL: Awake and alert. Able to move all 4 extremities. No focal neurologic deficit. Medications and IVs Current Medications Medications (Trade) Dose Ordered Sig/Inck Route Start Time Stop Time Status Last Admin (NS Flush) 2 ml UNSCH PRN IV FLUSH 02/08/17 14:30 02/10/17 11:24 (Tylenol) 650 mg Q4H PRN PO 02/06/17 16:15 02/07/17 13:50 (Zofran Inj) 4 mg Q6H PRN IVP 02/06/17 16:15 02/09/17 15:20 (Colace) 100 mg Q12HR PO 02/06/17 21:00 02/10/17 19:47 (Narcan Inj) 0.4 mg UNSCH PRN IV 02/06/17 16:15 (Xanax) 0.5 mg BID PRN PO 02/06/17 16:30 02/10/17 19:47 (Elavil) 25 mg HS PO 02/06/17 21:00 02/10/17 19:47 (Vitamin D3) 400 units DAILY PO 02/07/17 09:00 02/11/17 08:39 (PROzac) 20 mg DAILY PO 02/07/17 09:00 02/11/17 08:38 (Synthroid) 25 mcg DAILY@0600 PO 02/07/17 06:00 02/11/17 05:20 (Pravachol) 80 mg DAILY PO 02/07/17 09:00 02/11/17 08:39 ([place] 5-325 Mg) 1 tab Q6H PRN PO 02/06/17 19:45 02/09/17 21:04 (NS Flush) 2 ml BID IV FLUSH 02/08/17 21:00 02/11/17 09:00 (Norvasc) 10 mg DAILY PO 02/08/17 18:30 02/11/17 08:40 (Lactinex) 1 tab Q12HR PO 02/08/17 21:00 02/11/17 08:40 (Cardizem Cd) 240 mg DAILY PO 02/09/17 15:00 02/11/17 08:39 (SoluMEDROL INJ) 40 mg Q8H IVP 02/10/17 09:00 02/11/17 08:39 (Ferrous Sulfate) 325 mg BID PO 02/10/17 14:00 02/11/17 08:40 (Vitamin C) 500 mg BID PO 02/10/17 14:00 02/11/17 08:40 (Ecotrin Ec) 81 mg DAILY PO 02/11/17 09:00 02/11/17 08:40 (Heparin Inj) 5,000 units Q8HR SQ 02/10/17 22:00 02/11/17 14:34 (Levaquin) 750 mg Q24H PO 02/11/17 11:00 02/11/17 11:39 A/P Assessment and Plan 76-year-old female with a past medical history significant for hypertension, dyslipidemia, hypothyroidism, DVT of the right leg, history of C. 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 New onset atrial fibrillation with RVR - Resolved. Patient in normal sinus rhythm. Cardiology has signed off with recommendation of aspirin only for anticoagulation. - Continue on oral Cardizem - Continue to monitor on telemetry - Echocardiogram completed and shows EF 65%, normal wall motion, mild mitral and tricuspid valve regurgitation and mildly increased systolic pressure with PA peak pressure 43mm Hg - albuterol discontinued/changed to Xopenex Leukocytosis due to gastroenteritis and PNA - Resolved - Continuing to improve, white count, 28.3 -> 31.4 -> 19.5 -> 12.9 -> 11.5 -> 9.6. Patient remains afebrile. - Lactic acid normal - IV antiemetics when necessary Pneumonia - Improving - Continue IV Levaquin 750 mg daily - Maintain on oxygen therapy - Patient evaluated by Dr. Palm, very much appreciate his assistance. Agrees with above plan. Plan to follow-up with him in a week in the office following discharge. - Taper IV steroids Sepsis - Resolved - Patient met sepsis criteria with tachycardia, fever and elevated white count. - Continue IV antibiotics - Cultures show no growth x 5 days Hypertension - Patient with a history of hypertension that she did not disclose the time of her original history. Also on Norvasc at home which was not stated in the history or on her med rec. Nursing staff confirmed medication with patient's pharmacy. Norvasc 10 mg resumed. - BP well-controlled at present - Continue with Norvasc and monitor BP Anemia - mild, improving - Iron studies indicative of iron deficiency anemia. Continue by mouth repletion. STEPHANIE - Resolved COPD exacerbated by pneumonia - Maintain supplemental oxygen.. O2 sats 95% on 3 1/2L NC. 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 El on 02/11/17 at 11 :15. All or portions of this note were transcribed by scribe Brittany Robles. I, Dr. Kj El personally performed the history, physical exam, and medical decision making; and confirmed the accuracy of the information in the transcribed note. Authenticated by Dr. Kj El on 02/12/17 at 07:46. Brittany Robles Feb 11, 2017 11:15 Kj El MD Feb 12, 2017 07:46
[2017-02-11] MEDS: LEVOFLOXACIN 750 MG TAB PO SCH (11:39)
--- NOTE | 2017-02-11 15:40 | HHI.PR ---
Subjective Remarks alert less SOB ON O2 COUGH SMALL AMOUNT WHITE SPUTUM Objective Vital Signs Date Time Temp Pulse Resp B/P Pulse Ox O2 Delivery O2 Flow Rate FiO2 02/11/17 15:07 95 Nasal Cannula 2.50 02/11/17 12:00 98.7 90 20 122/69 95 02/11/17 11:21 97 Nasal Cannula 3.50 02/11/17 08:00 89 02/11/17 08:00 95 Nasal Cannula 3.00 02/11/17 08:00 97.8 88 18 142/76 96 02/11/17 07:30 96 Nasal Cannula 4.50 02/11/17 04:18 97.0 93 24 147/76 94 02/11/17 00:06 98.9 89 20 138/73 92 02/10/17 20:27 98.8 91 23 140/83 93 02/10/17 20:00 84 02/10/17 20:00 93 Nasal Cannula 3.00 02/10/17 19:42 93 Nasal Cannula 4.00 02/10/17 16:00 97.0 86 20 105/55 95 I/O 02/10/17 02/10/17 02/10/17 02/11/17 02/11/17 02/11/17 07:00 15:00 23:00 07:00 15:00 23:00 Intake Total 300 ml Balance 300 ml Intake Oral 300 ml # Voids 2 1 1 # Bowel Movements 0 Result Diagram: 02/11/17 0600 02/10/17 0939 Objective Remarks GENERAL: SKIN: Warm and dry. HEAD: Atraumatic. Normocephalic. EYES: Pupils equal and round. No scleral icterus. No injection or drainage. ENT: No nasal bleeding or discharge. Mucous membranes pink and moist. NECK: Trachea midline. No JVD. CARDIOVASCULAR: Regular rate and rhythm. RESPIRATORY: No accessory muscle use. SCATTERED RONCHI to auscultation. Breath sounds equal bilaterally. GASTROINTESTINAL: Abdomen soft, non-tender, nondistended. Hepatic and splenic margins not palpable. MUSCULOSKELETAL: Extremities without clubbing, cyanosis, or edema. No obvious deformities. NEUROLOGICAL: Awake and alert. No obvious cranial nerve deficits. Motor grossly within normal limits. Five out of 5 muscle strength in the arms and legs. Normal speech. PSYCHIATRIC: Appropriate mood and affect; insight and judgment normal. Assessment and Plan Discussed Condition With assesment COPD EXACERBATYION RESPIRATORY FAILURE PLAN O2 NEEDED BRONCHDILATOR THERAPY RA SAT TO ASSESS NEED FOR HOME O2 Néstor Palm MD Feb 11, 2017 15:40
[2017-02-11 16:18] LABS: BLOOD GAS BASE EXCESS 4.3 mmol/L (-2-2); BLOOD GAS HCO3 28 mmol/L (22-26); BLOOD GAS METHEMOGLOBIN 0.6 % (0-2); BLOOD GAS O2 HGB SATURATION 89 % (90-100); BLOOD GAS OXYGEN CONTENT 15.9 Vol % (12.0-20.0); BLOOD GAS PCO2 40 mmHg (38-42); BLOOD GAS PO2 54 mmHg (61-120); BLOOD GAS TOTAL HGB 12.8 G/DL (12.0-16.0)
[2017-02-11 16:19] LABS: CRITICAL VALUE YES; DRAW SITE RT RADIAL; FIO2 21 %; NUMBER OF ARTERIAL PUNCTURES 1; OXYGEN DEVICE ROOM AIR; STAT NO; ULNAR PULSE PRESENT
[2017-02-11] MEDS: AMITRIPTYLINE HCL 25 MG TAB PO SCH (21:03)
[2017-02-11] MEDS: ALPRAZolam 0.5 MG TAB PO PRN (21:14)
[2017-02-12] VITALS: BP 143/72; PULSE 76; RESP 16; TEMP 96.3; O2SAT 96
[2017-02-12] MEDS: RESP: IPRATROPIUM 0.5 MG/2.5 ML NEB NEB SCH ×3 (03:14→11:09)
[2017-02-12 04:00] VITALS: BP 146/70; PULSE 80; RESP 18; TEMP 97.1; O2SAT 98
[2017-02-12] MEDS: HEPARIN SODIUM - SQ 10,000 UNITS/ML VIAL SQ SCH (06:10)
[2017-02-12] MEDS: LEVOTHYROXINE SODIUM 25 MCG TAB PO SCH (06:10)
[2017-02-12 06:32] LABS: PROTHROMBIN TIME - PATIENT 10.7 SEC (9.8-11.6)
[2017-02-12] MEDS: RESP: LEVALBUTEROL HYDROCHLORIDE 1.25 MG/3 ML NEB (SCH) NEB ×2 (07:35→11:09)
[2017-02-12 07:39] VITALS: O2SAT 92
[2017-02-12 08:00] VITALS: BP 142/73; PULSE 85; RESP 22; TEMP 97.8; O2SAT 97
[2017-02-12 08:02] VITALS: PULSE 87
[2017-02-12] MEDS: DILTIAZEM-CD 240 MG CAP ER PO SCH (08:41)
[2017-02-12] MEDS: ASPIRIN EC 81 MG TABEC PO SCH (08:41)
[2017-02-12] MEDS: methylPREDNISolone SOD SUCC 40 MG/1 ML VIAL IVP SCH (08:41)
[2017-02-12] MEDS: SODIUM CHLORIDE 0.9% FLUSH 5 ML FLUSH IV FLUSH SCH (08:41)
[2017-02-12] MEDS: FERROUS SULFATE 325 MG (65 MG ELEMENTAL IRON) TAB PO SCH (08:41)
[2017-02-12] MEDS: ASCORBIC ACID 500 MG TAB PO SCH (08:41)
[2017-02-12] MEDS: LACTOBACILLUS ACIDOPHILUS TAB PO SCH (08:42)
[2017-02-12] MEDS: FLUoxetine HCL 20 MG CAP PO SCH (08:42)
[2017-02-12] MEDS: CHOLECALCIFEROL (VIT D3) 400 UNIT TAB PO SCH (08:42)
[2017-02-12] MEDS: PRAVASTATIN SOD 80 MG TAB PO SCH (08:42)
[2017-02-12] MEDS: DOCUSATE SODIUM 100 MG CAP PO SCH (08:42)
[2017-02-12] MEDS ORDERED: OXYGENTANK NAS.CANULA (09:32)
[2017-02-12] MEDS ORDERED: FERR325T PO (10:46)
[2017-02-12] MEDS ORDERED: CARD240C6 PO (10:46)
[2017-02-12] MEDS ORDERED: LEVA750T PO (10:46)
[2017-02-12] MEDS ORDERED: VITA500T PO (10:46)
[2017-02-12] MEDS ORDERED: MEDR4PAK PO (10:46)
--- NOTE | 2017-02-12 10:52 | HHI.DCPOC ---
Discharge Care Plan Diagnosis: (1) Hypokalemia (2) Hypomagnesemia (3) COPD (chronic obstructive pulmonary disease) (4) Hypoxia (5) Atrial fibrillation with rapid ventricular response (6) Pneumonia (7) Leukocytosis (8) Lung mass Goals to Promote Your Health * To prevent worsening of your condition and complications * To maintain your health at the optimal level Directions to Meet Your Goals Take your medications as prescribed Follow your dietary instruction Follow activity as directed Keep your appointments as scheduled Take your immunizations and boosters as scheduled If your symptoms worsen call your PCP, if no PCP go to Urgent Care Center or Emergency Room Smoking is Dangerous to Your Health. Avoid second hand smoke Call the 24-hour hour crisis hotline for domestic abuse at Brittany Roblse Feb 12, 2017 10:52
--- NOTE | 2017-02-12 11:10 | HHI.DS ---
Discharge Summary Admission Date Feb 06, 2017 at 16:23 Discharge Date: Feb 12, 2017 Admitting Diagnosis abdominal pain, leukocytosis (1) COPD (chronic obstructive pulmonary disease) ICD Code: J44.9 (2) Iron deficiency anemia ICD Code: D50.9 (3) Hypokalemia ICD Code: E87.6 (4) Hypomagnesemia ICD Code: E83.42 (5) Leukocytosis ICD Code: D72.829 (6) Lung mass ICD Code: R91.8 (7) Hypoxia ICD Code: R09.02 (8) Pneumonia ICD Code: J18.9 (9) Atrial fibrillation with rapid ventricular response ICD Code: I48.91 (10) Sepsis ICD Code: A41.9 (11) Hypertension ICD Code: I10 Procedures None Brief History - From Admission This is a 76-year-old female with a past medical history significant for hypertension, dyslipidemia, COPD, hypothyroidism, DVT of the right leg, history of C. 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 Patient denies any increase in cough or shortness of breath. She denies any diarrhea constipation hematochezia or melena. She denies any burning with urination or hematuria. She denies any weight loss or night sweats. She underwent a previous total knee replacement approximately one year ago and reports chronic pain ever since and recent underwent bone scan 2 weeks ago and is awaiting the results. She has a history of heavy tobacco use of 3 packs of cigarettes a day for 65 years but quit smoking 1 month ago. She does not use oxygen at home. CT of the abdomen and pelvis was obtained which showed diverticular disease of the descending and sigmoid colon without diverticulitis and masslike lesion in the right middle lobe the largest measuring 2.3 cm and any diameter. CT of the chest shows 3 discrete parenchymal densities tussive of patchy pneumonic infiltrates, atypical neoplasm such as bronchioloalveolar carcinoma have similar appearance. Patient meets sepsis criteria with tachycardia, increased respiratory rate, fever and elevated white count of 28.3 with a left shift. CBC/BMP: 02/11/17 0600 02/10/17 0939 Significant Findings Laboratory Tests Test 02/09/17 02/10/17 02/10/17 02/11/17 13:07 07:40 09:39 06:00 Iron Level 41 MCG/DL (50-170) Total Iron Binding Capacity 207 MCG/DL (250-450) Percent Iron Saturation 19.8 % (20-50) White Blood Count 11.5 TH/MM3 (4.0-11.0) Hemoglobin 11.5 GM/DL 11.2 GM/DL (11.6-15.3) (11.6-15.3) Hematocrit 34.8 % 33.7 % (35.0-46.0) (35.0-46.0) Mean Corpuscular Volume 79.7 FL (80.0-100.0) Mean Corpuscular Hemoglobin 26.4 PG 26.7 PG (27.0-34.0) (27.0-34.0) Neutrophils (%) (Auto) 82.4 % 92.8 % (16.0-70.0) (16.0-70.0) Neutrophils # (Auto) 9.5 TH/MM3 8.9 TH/MM3 (1.8-7.7) (1.8-7.7) Random Glucose 168 MG/DL (74-106) Lymphocytes (%) (Auto) 5.2 % (9.0-44.0) Lymphocytes # (Auto) 0.5 TH/MM3 (1.0-4.8) Test 02/11/17 16:03 Blood Gas HCO3 28 mmol/L (22-26) Blood Gas Base Excess 4.3 mmol/L (-2-2) Blood Gas Oxygen Saturation 89 % (90-100) Arterial Blood pH 7.46 (7.380-7.420) Arterial Blood Partial 54 mmHg Pressure O2 (61-120) Imaging Last Impressions Chest X-Ray 02/06/17 0000 Signed Impressions: Service Date/Time: Monday, February 06, 2017 12:18 - CONCLUSION: 1. No acute infiltrate to explain current clinical symptoms. 2. Questionable nodular density versus superimposition of shadows in the right lung base. Noncontrasted CT scan could be performed for further characterization. Mamadou Manuel MD ADDENDUM: Of note, similar patchy density is identified in the left lingular region as well. Mamadou Manuel MD Chest CT 02/06/17 0000 Signed Impressions: Service Date/Time: Monday, February 06, 2017 16:06 - CONCLUSION: 1. CT confirms the presence of 3 discrete parenchymal densities. These are in the right middle lobe, left lingula and right azygoesophageal recess. Imaging characteristics are suggestive of patchy pneumonic infiltrates rather than neoplastic processes. However, I would recommend a followup CT of the chest in a few weeks after therapy to ensure resolution. Atypical neoplasm such as bronchoalveolar carcinoma could have a similar appearance. 2. No obvious adenopathy on this noncontrasted study. 3. Levorotoscoliosis of the thoracolumbar spine. Mamadou Manuel MD Abdomen/Pelvis CT 02/06/17 0000 Signed Impressions: Service Date/Time: Monday, February 06, 2017 12:20 - CONCLUSION: 1. Diverticular disease of the descending and sigmoid colon without diverticulitis. 2. Masslike lesions in the right middle lobe, the largest measuring 2.3 cm in diameter. A dedicated CT scan of the chest without contrast is recommended for further characterization. 3. Postsurgical changes with findings of prior cholecystectomy and hysterectomy . Mamadou Manuel MD PE at Discharge GENERAL: This is a well-nourished, well-developed patient, in no apparent distress. Sitting up in bedside chair eating breakfast. A&Ox3. SKIN: Warm and dry. HEAD: Atraumatic. Normocephalic. EYES: EOMI. CARDIOVASCULAR: Regular rate and rhythm with no murmurs, gallops, or rubs. RESPIRATORY: Scattered rhonchi. Improved air movement. Breath sounds symmetrical. GASTROINTESTINAL: Abdomen soft, nondistended. No hepato-splenomegaly, or palpable masses. No guarding. NTTP. MUSCULOSKELETAL: Extremities without clubbing, cyanosis, or edema. No joint effusion, or edema noted. No calf tenderness. Well-healed surgical scar anterior right knee with some mild warmth as well as tenderness to palpation and with ROM. No appreciable effusion or erythema. NEUROLOGICAL: Awake and alert. Able to move all 4 extremities. No focal neurologic deficit. Pt update on day of discharge Patient reports that she is doing well today. Her breathing is better. She is satting 97% on 2 L. She denies any complaints of chest pain, abdominal pain or nausea or vomiting. Still with some cough but much improved. Hospital Course Patient admitted with leukocytosis secondary to recurrent C. difficile infection versus gastroenteritis versus lung infection. Patient was admitted inpatient. She met sepsis criteria with tachycardia, fever and elevated white count. Due to a previous history of C. difficile and admission complaints of nausea, vomiting, abdominal pain, fever and chills C. difficile study was ordered. However, the patient did not have any episodes of diarrhea following her admission, therefore the test was canceled. CT of the abdomen revealed diverticular disease without any evidence of diverticulitis and a masslike lesion in the right middle lobe measuring 2.[address] of the chest revealed 3 discrete parenchymal densities suggestive of acute infiltrates, although atypical neoplasm could have a similar appearance. She was started on IV Levaquin as well as by mouth Flagyl. Patient was asked to be seen in consultation by pulmonary medicine. Flagyl was discontinued as patient had no recurrence of her preadmission diarrhea. Patient was given supportive care with supplemental oxygen and IV fluids. Her initial white count was 19,500 but resolved to 9.6 on the day of her admission. She was noted to have some anemia with a hemoglobin/hematocrit 10.6/33.4 respectively and follow up iron studies were ordered which indicated iron deficiency anemia. Patient was started on oral supplementation. Patient was seen in consultation by Dr. Palm who agreed with IV Levaquin, home oxygen walk test prior to discharge, follow-up in one week at time of discharge in his office and a follow-up CT scan of the chest in one month. Patient went into atrial fibrillation with rapid ventricular response. Started on an IV diltiazem and Heparin drip. Echocardiogram was ordered revealing EF 65%. She remained in RVR and cardiology consult was requested. Patient was seen in consultation by Dr. Nickerson who added IV digoxin , discontinued the heparin and started the patient on therapeutic Lovenox. Patient return to normal sinus rhythm and per Dr. Nickerson only required aspirin for anticoagulation. He then signed off on the case. Blood cultures failed to show any growth in 5 days time. Respiratory home oxygen walk test was performed the patient's O2 sats dropped to 87% on room air at rest. As a result patient qualified for home oxygen to case management was consulted to assist with discharge planning with home oxygen. Patient was cleared for discharge from pulmonary standpoint. Patient participated well with physical therapy ambulating 130 feet. Patient was discharged from hospital with home health care to assist with home oxygen education. Pt Condition on Discharge: Stable Discharge Disposition: Discharge Home Discharge Time: > 30 minutes Discharge Instructions DIET: Follow Instructions for: Heart Healthy Diet Activities you can perform: Regular-No Restrictions Follow up Referrals: Cardiology - 2 Weeks PCP Follow-up - 2-3 Days Pulmonology - 1 Week with Néstor Palm MD New Medications: Methylprednisolone Dosepak (Medrol Dosepak) 4 Mg Dspk 4 MG PO DIRECTED Per Pharmacist direction #1 Ref 0 DSPK Oxygen tank (Oxygen tank) 1 Ea Tank 2 LITER LYNDSAY.CANULA CONTINUOUS Oxygen Concentrator Portable Gaseous 2 L/min via Nasal Cannula Continuous For 99 months HYPOXEMIA PREVENTION #2 CYLINDER Ascorbic Acid (Vitamin C) 500 Mg Tab 500 MG PO BID GAYLE #60 TAB Diltiazem CD 24 HR (Cardizem CD 24 HR) 240 Mg Caper 240 MG PO DAILY Atrial fibrillation #30 CAP Ferrous Sulfate (Ferrous Sulfate) 325 Mg Tab 325 MG PO BID Iron deficiency anemia #60 TAB Levofloxacin (Levaquin) 750 Mg Tab 750 MG PO Q24H Pneumonia #6 TAB Continued Medications: Alprazolam (Xanax) 0.5 Mg Tab 0.5 MG PO BID PRN ANXIETY Ref 0 TAB Amitriptyline HCl (Elavil) 25 Mg Tab 1 TAB PO HS Amlodipine (Norvasc) 10 Mg Tab 10 MG PO DAILY Blood Pressure Management #30 Ref 0 TAB Aspirin (Aspirin) 81 Mg Tabdr 81 MG PO DAILY TAB Cholecalciferol (Vitamin D3) 400 Unit Cap 400 UNITS PO DAILY Nutritional Supplement #1 Ref 0 BOTTLE Fluoxetine (Prozac) 20 Mg Cap 40 MG PO DAILY #30 Ref 0 CAP Ipratropium-Albuterol Neb (Duoneb) 0.5-2.5 Mg/3 Ml Neb 1 NEBULE INH Q4HR NEB SHORTNESS OF BREATH #120 Ref 0 NEBULE Levothyroxine (Synthroid) 25 Mcg Tab 25 MCG PO DAILY Thyroid #30 Ref 0 TAB Simvastatin (Zocor) 80 Mg Tab 40 MG PO DAILY Cholesterol Management #30 Ref 0 TAB Additional Information Written by Brittany Robles PA-C acting as scribe for Dr. El on 02/12/17 at 11:11. Brittany Robles Feb 12, 2017 11:10 Kj El MD Feb 12, 2017 15:11
[2017-02-12] MEDS: LEVOFLOXACIN 750 MG TAB PO SCH (11:44)
--- NOTE | 2017-02-12 12:02 | HHI.FF ---
Face to Face Verification Diagnosis: (1) COPD (chronic obstructive pulmonary disease) Home Health Nursing Order: Oxygen administration education Nursing assessment with vital signs I have seen patient Aisha Kapadia on 02/12/17. My clinical findings support the need for the requested home health care services because: Patient has SOB I certify that my clinical findings support that this patient is homebound because: Hx COPD- exertion dyspnea/weakness Kj El MD Feb 12, 2017 12:02
--- NOTE | 2017-02-12 22:22 | EKG ---
Date Performed: 02/10/2017 Time Performed: 05:59:24 PTAGE: 76 years EKG: Sinus rhythm with PVC(s) Septal ST changes are nonspecific Since previous tracing, no significant change noted Brian rderline ECG PREVIOUS TRACING : 02/09/2017 15.56 DOCTOR: Heide Au Interpretating Date/Time 02/12/2017 22:19:35
== END 2017-02-12 13:22 | disposition home or self-care (01) | DRG 871 ==
LOC: PHED 11:14 → PHEDA 14:09 → OBSVTOIN 16:23 → PH3A 16:44
PROVIDERS: ADMIT Family Medicine; ATTEND Family Medicine
DX: A41.9 Sepsis, unspecified organism (principal); J18.9 Pneumonia, unspecified organism; J96.91 Respiratory failure, unspecified with hypoxia; N17.9 Acute kidney failure, unspecified; E83.42 Hypomagnesemia; I08.1 Rheumatic disorders of both mitral and tricuspid valves; I48.91 Unspecified atrial fibrillation; J44.0 Chronic obstructive pulmonary disease with (acute) lower respiratory infection; J44.1 Chronic obstructive pulmonary disease with (acute) exacerbation; I10 Essential (primary) hypertension; E78.5 Hyperlipidemia, unspecified; E03.9 Hypothyroidism, unspecified; D50.9 Iron deficiency anemia, unspecified; E87.6 Hypokalemia; G89.29 Other chronic pain; K52.9 Noninfective gastroenteritis and colitis, unspecified; K57.90 Diverticulosis of intestine, part unspecified, without perforation or abscess without bleeding; Z79.01 Long term (current) use of anticoagulants; Z79.899 Other long term (current) drug therapy; Z96.651 Presence of right artificial knee joint; Z87.891 Personal history of nicotine dependence; F39 Unspecified mood [affective] disorder
CPT/HCPCS: 36600; 71010; 71250; 74177; 80048; 80053; 81001; 82728; 82805; 83540; 83550; 83605; 83690; 83735; 83880; 84443; 84484; 85025; 85610; 85652; 86140; 87040; 87804; 93005; 93306; 94640; 94664; 96361; 96374; J1160; J1644; J1650; J1956; J2405; J2920; J7030; J7614; J7644; Q9967

== ENCOUNTER 2017-03-10 12:54 | Inpatient (IN) | payer OTHER, MEDICARE ==
[~2017-03-10] VITALS: Ht 167.6 cm; Wt 84.5 kg
[2017-03-10] VITALS (12 sets, daily range): BP systolic 114–125; BP diastolic 55–74; PULSE 72–89; RESP 20–22; TEMP 95.8–97.6; O2SAT 94–99
[~2017-03-10 12:54] MED LIST changes: -1-ME1LIQ PO; +AMIT1TAB79 PO; -AMIT25TA20 PO; +AMLO10 PO; +ASPI1TAB69 PO; +CARD240C6 PO; +CHOL1CAP8 PO; -DUONI INH; +FERR325T PO; +IPRASOL INH; +LEVA750T PO; +MEDR4PAK PO; +OXYGENTANK NAS.CANULA; -SIMV80TA PO; -TEMA15 PO; +VITA500T PO; -VITD400 PO; -WARF-20 PO; +ZOCO80TA PO; -prednisone PO
[2017-03-10] MEDS ORDERED: FURO40TA PO (13:14)
[2017-03-10] MEDS ORDERED: CART240C PO (13:14)
[2017-03-10] MEDS ORDERED: SODIUM CHLORIDE 0.9% FLUSH 10 ML FLUSH IVF PRN (13:45)
--- NOTE | 2017-03-10 13:46 | PD ---
HPI Chief Complaint: Respiratory Symptoms Time Seen by Provider: 13:34 Travel History International Travel<30 days: No Contact w/Intl Traveler<30days: No Traveled to known affect area: No History of Present Illness HPI 76-year-old female with history of hypertension, new onset atrial fibrillation last month, pneumonia, presents to the ER today because she states that since her release several weeks ago, she states she has not been feeling well, has been feeling worse, having dyspnea on exertion, shortness of breath, general weakness, and coughing. She denies any chest pains, fevers, or any other symptoms. Patient states that she had been into see her primary care physician last week, and they did a chest x-ray and it showed fluids and she is post to get a CAT scan evaluation next week. Modifying Factors: None Associated Signs & Symptoms: Cough, shortness of breath, general weakness Risk Factors: History of recent pneumonia, A. fib PFSH Past Medical History Hx Anticoagulant Therapy: No Arthritis: Yes Anxiety: Yes Depression: Yes Heart Rhythm Problems: No Cancer: No Cardiovascular Problems: Yes (HTN) High Cholesterol: Yes Congestive Heart Failure: No COPD: Yes Cerebrovascular Accident: No Diabetes: No Diminished Hearing: Yes Endocrine: Yes Gastrointestinal Disorders: Yes GERD: No Genitourinary: No Hepatitis: No Hiatal Hernia: No Hypertension: Yes Immune Disorder: No Implanted Vascular Access Dvce: Yes Musculoskeletal: Yes Neurologic: No Psychiatric: Yes (ANXIETY) Reproductive: No Respiratory: Yes (COPD) Immunizations Current: Yes Seizures: No Thyroid Disease: Yes (HYPO) Ulcer: Yes Menopausal: Yes Past Surgical History Abdominal Surgery: Yes (CHOLECYSTECTOMY) Body Medical Devices: BRITTON HEARING AIDS Cholecystectomy: Yes Ear Surgery: Yes (LEFT EAR SX) Eye Surgery: Yes (BRITTON CATARACT EXTRACTION) Gynecologic Surgery: Yes (HYSTERECTOMY) Hysterectomy: Yes Joint Replacement: Yes (right knee 12/2014) Other Surgery: Yes (lt ear) Social History Alcohol Use: Yes Tobacco Use: No Substance Use: No Allergies-Medications (Allergen,Severity, Reaction): Coded Allergies: Adhesives (Unverified Allergy, Intermediate, TEARS SKIN, 02/06/17) Sulfa (Verified Allergy, Unknown, 02/06/17) HIVES-INTERMEDIATE REACTION Reported Meds & Prescriptions Reported Meds & Active Scripts Active Cardizem CD 24 HR (Diltiazem CD 24 HR) 240 Mg Caper 240 Mg PO DAILY Ferrous Sulfate 325 Mg Tab 325 Mg PO BID Vitamin C (Ascorbic Acid) 500 Mg Tab 500 Mg PO BID Oxygen tank (Oxygen) 1 Ea Tank 2 Liter LYNDSAY.[employer] CONTINUOUS Oxygen Concentrator Portable Gaseous 2 L/min via Nasal Cannula Continuous For 99 months Reported Cartia Xt (Diltiazem ER 24 HR) 240 Mg Caper 240 Mg PO DAILY Furosemide 40 Mg Tab 40 Mg PO DAILY Norvasc (Amlodipine Besylate) 10 Mg Tab 10 Mg PO DAILY Synthroid (Levothyroxine Sodium) 25 Mcg Tab 25 Mcg PO DAILY Prozac (Fluoxetine HCl) 20 Mg Cap 40 Mg PO DAILY Aspirin 81 Mg Tabdr 81 Mg PO DAILY Zocor (Simvastatin) 80 Mg Tab 40 Mg PO DAILY Vitamin D3 (Cholecalciferol) 400 Unit Cap 400 Units PO DAILY Elavil (Amitriptyline HCl) 25 Mg Tab 1 Tab PO HS Xanax (Alprazolam) 0.5 Mg Tab 0.5 Mg PO BID PRN Duoneb (Ipratropium-Albuterol Neb) 0.5-2.5 Mg/3 Ml Neb 1 Nebule INH Q4HR NEB Review of Systems Except as stated in HPI: all other systems reviewed are Neg Physical Exam Narrative GENERAL: Well-developed tired appearing elderly white female in mild respiratory distress. Awake and oriented 3. SKIN: Focused skin assessment warm/dry. HEAD: Atraumatic. Normocephalic. EYES: Pupils equal and round. No scleral icterus. No injection or drainage. ENT: No nasal bleeding or discharge. Mucous membranes pink and moist. NECK: Trachea midline. No JVD. CARDIOVASCULAR: Irregularly irregular. No murmur appreciated. RESPIRATORY: No accessory muscle use. Basilar crackles more pronounced on the left. Breath sounds equal bilaterally. GASTROINTESTINAL: Abdomen soft, non-tender, nondistended. Hepatic and splenic margins not palpable. MUSCULOSKELETAL: No obvious deformities. No clubbing. No cyanosis. No edema. NEUROLOGICAL: Awake and alert. No obvious cranial nerve deficits. Motor grossly within normal limits. Normal speech. PSYCHIATRIC: Appropriate mood and affect; insight and judgment normal. Data Data Last Documented VS Vital Signs Date Time Temp Pulse Resp B/P Pulse Ox O2 Delivery O2 Flow Rate FiO2 03/10/17 16:04 76 20 123/60 96 Nasal Cannula 2 03/10/17 13:10 97.6 Orders Complete Blood Count With Diff (03/10/17 13:34) Basic Metabolic Panel (Bmp) (03/10/17 13:34) B-Type Natriuretic Peptide (03/10/17 13:34) Act Partial Throm Time (Ptt) (03/10/17 13:34) Prothrombin Time / Inr (Pt) (03/10/17 13:34) Ckmb (Isoenzyme) Profile (03/10/17 13:34) Troponin I (03/10/17 13:34) Iv Access Insert/Monitor (03/10/17 13:34) Electrocardiogram (03/10/17 13:34) Ecg Monitoring (03/10/17 13:34) Oximetry (03/10/17 13:34) Oxygen Administration (03/10/17 13:34) Chest, Single Ap (03/10/17 13:34) Sodium Chloride 0.9% Flush (Ns Flush) (03/10/17 13:45) Ct Thorax/ Chest W Iv Contrast (03/10/17 14:55) Iohexol 350 Inj (Omnipaque 350 Inj) (03/10/17 15:43) Admit Order (Ed Use Only) (03/10/17 16:29) Albuterol-Ipratropium Neb (Duoneb Neb) (03/10/17 16:30) Labs Laboratory Tests Test 03/10/17 13:40 White Blood Count 8.4 TH/MM3 Red Blood Count 4.63 MIL/MM3 Hemoglobin 12.4 GM/DL Hematocrit 37.7 % Mean Corpuscular Volume 81.3 FL Mean Corpuscular Hemoglobin 26.7 PG Mean Corpuscular Hemoglobin 32.8 % Concent Red Cell Distribution Width 16.3 % Platelet Count 270 TH/MM3 Mean Platelet Volume 9.9 FL Neutrophils (%) (Auto) 69.6 % Lymphocytes (%) (Auto) 20.6 % Monocytes (%) (Auto) 8.2 % Eosinophils (%) (Auto) 1.0 % Basophils (%) (Auto) 0.6 % Neutrophils # (Auto) 5.8 TH/MM3 Lymphocytes # (Auto) 1.7 TH/MM3 Monocytes # (Auto) 0.7 TH/MM3 Eosinophils # (Auto) 0.1 TH/MM3 Basophils # (Auto) 0.1 TH/MM3 CBC Comment DIFF FINAL Differential Comment Prothrombin Time 10.7 SEC Prothromb Time International 1.0 RATIO Ratio Activated Partial 26.3 SEC Thromboplast Time Sodium Level 142 MEQ/L Potassium Level 3.5 MEQ/L Chloride Level 102 MEQ/L Carbon Dioxide Level 31.0 MEQ/L Anion Gap 9 MEQ/L Blood Urea Nitrogen 14 MG/DL Creatinine 0.73 MG/DL Estimat Glomerular Filtration 77 ML/MIN Rate Random Glucose 125 MG/DL Calcium Level 8.4 MG/DL Total Creatine Kinase 25 U/L Troponin I LESS THAN 0.02 NG/ML B-Type Natriuretic Peptide 63 PG/ML [facility] Medical Decision Making Medical Screen Exam Complete: Yes Emergency Medical Condition: Yes Medical Record Reviewed: Yes Interpretation(s) EKG shows NSR, no ST elevation or depression, and no arrhythmias. No significant T-wave inversions. Laboratory Tests Test 03/10/17 13:40 Mean Corpuscular Hemoglobin 26.7 PG (27.0-34.0) Monocytes (%) (Auto) 8.2 % (0.0-8.0) Estimat Glomerular Filtration 77 ML/MIN (>89) Rate Random Glucose 125 MG/DL (74-106) Calcium Level 8.4 MG/DL (8.5-10.1) Total Creatine Kinase 25 U/L (26-192) Troponin I LESS THAN 0.02 NG/ML (0.02-0.05) Last [address] 03/10/17 1455 Signed Impressions: Service Date/Time: Friday, March 10, 2017 15:34 - CONCLUSION: 1. Moderate-sized pleural effusion on the right side with mild atelectasis or consolidation in the adjacent right lower lung. 2. No acute findings in the left chest or mediastinum. Julian Leiva MD Chest X-Ray 03/10/17 1334 Signed Impressions: Service Date/Time: Friday, March 10, 2017 13:40 - CONCLUSION: Right base consolidation/atelectasis and possible mild effusion. José Corea MD Differential Diagnosis Coughing, shortness of breath, general weaknessworsening pneumonia versus pleural effusion versus CHF versus COPD exacerbation Narrative Course Chest x-ray shows a right sided pleural effusion of uncertain etiology. CAT scan shows a moderate-sized pleural effusion with right lower lobe atelectasis or consolidation. At this point, considering the patient is doing poorly at home, she needs further evaluation of this pleural effusion. My plan would be to admit her for further evaluation and treatment. Case was discussed with Dr. Sandhu for further treatment. Diagnosis Primary Impression: Pleural effusion, right Admitting Information Admitting Physician Requests: it Emilia Blake MD Mar 10, 2017 13:46
[2017-03-10 14:20] LABS: AUTOMATED NEUTROPHIL # 5.8 TH/MM3 (1.8-7.7); BASOPHIL # 0.1 TH/MM3 (0-0.2); BASOPHIL % 0.6 % (0.0-2.0); EOSINOPHIL # 0.1 TH/MM3 (0-0.4); HEMATOCRIT 37.7 % (35.0-46.0); HEMO FLAGS DIFF FINAL; LYMPH % 20.6 % (9.0-44.0); LYMPHOCYTE # 1.7 TH/MM3 (1.0-4.8); MEAN CELL VOLUME 81.3 FL (80.0-100.0); MEAN CORPUSCULAR HEMOGLOBIN 26.7 PG (27.0-34.0); MEAN CORPUSCULAR HGB CONC 32.8 % (32.0-36.0); MONO % 8.2 % (0.0-8.0); NEUT % 69.6 % (16.0-70.0); PLATELET COUNT 270 TH/MM3 (150-450); RED BLOOD COUNT 4.63 MIL/MM3 (4.00-5.30); RED CELL DISTRIBUTION WIDTH 16.3 % (11.6-17.2); WHITE BLOOD COUNT 8.4 TH/MM3 (4.0-11.0)
--- NOTE | 2017-03-10 14:21 | RADHPO ---
EXAM DATE/TIME: 03/10/2017 13:40 [facility] COMPARISON: CHEST SINGLE AP, February 06, 2017, 12:18. INDICATIONS : Short of breath, cough MEDICAL HISTORY : Chronic obstructive pulmonary disease. SURGICAL HISTORY : None. ENCOUNTER: Initial ACUITY: 2 days PAIN SCORE: 0/10 LOCATION: Bilateral chest FINDINGS: The heart size is normal. There is increased density at the right base. There is silhouetting of the right hemidiaphragm. The left lung is clear. CONCLUSION: Right base consolidation/atelectasis and possible mild effusion. José Corea MD on March 10, 2017 at 14:18 Board Certified Radiologist. This report was verified electronically.
[2017-03-10 14:29] LABS: CHLORIDE 102 MEQ/L (98-107); POTASSIUM 3.5 MEQ/L (3.5-5.1); SODIUM (NA) 142 MEQ/L (136-145)
[2017-03-10 14:32] LABS: ANION GAP 9 MEQ/L (5-15); BLOOD UREA NITROGEN 14 MG/DL (7-18)
[2017-03-10 14:34] LABS: APTT (PATIENT) 26.3 SEC (24.3-30.1); PROTHROMBIN TIME - PATIENT 10.7 SEC (9.8-11.6)
[2017-03-10 14:35] LABS: GLOMERULAR FILTRATION RATE 77 ML/MIN (>89)
[2017-03-10 14:42] LABS: CREATINE KINASE 25 U/L (26-192)
[2017-03-10] MEDS ORDERED: IOHEXOL 350 MG/ML 10 ML VIAL (for RAD DIAG) IV ONE (15:43)
--- NOTE | 2017-03-10 16:21 | RADHPO ---
EXAM DATE/TIME: 03/10/2017 15:34 [facility] COMPARISON: CHEST SINGLE AP, March 10, 2017, 13:40. INDICATIONS : Short of breath for one week. Abnormal chest xray. IV CONTRAST: 65 cc Omnipaque 350 (iohexol) IV RADIATION DOSE: 12.26 CTDIvol (mGy) MEDICAL HISTORY : Hypertension. Chronic obstructive pulmonary disease. SURGICAL HISTORY : Cholecystectomy. Hysterectomy.Orthopedic surgery. ENCOUNTER: Initial ACUITY: 1 week PAIN SCALE: 0/10 LOCATION: chest TECHNIQUE: Volumetric scanning of the chest was performed. Using automated exposure control and adjustment of t he mA and/or kV according to patient size, radiation dose was kept as low as reasonably achievable to obtain optimal diagnostic quality images. FINDINGS: LUNGS: There is a mild consolidation in the posterior right lower lung adjacent to the pleural effusion. Th e remainder of the lungs are clear. PLEURA: Moderate-sized right pleural effusion measuring up to 3.7 cm in AP dimension. No pleural effusion on the left. MEDIASTINUM: The heart and great vessels demonstrate no acute abnormality. There is no mediastinal or hilar lymph adenopathy. Coronary artery calcifications. AXILLAE: Within normal limits. No lymphadenopathy. SKELETAL: Within normal limits for patient age. MISCELLANEOUS: The visualized upper abdominal organs demonstrate no acute abnormality. CONCLUSION: 1. Moderate-sized pleural effusion on the right side with mild atelectasis or consolidation in the ad jacent right lower lung. 2. No acute findings in the left chest or mediastinum. Julian Leiva MD on March 10, 2017 at 16:17 Board Certified Radiologist. This report was verified electronically.
[2017-03-10] MEDS: RESP: ALBUTEROL 2.5 MG/IPRATROPIUM 0.5 MG NEB (SCH) INH (16:37)
[2017-03-10] MEDS ORDERED: MAGNESIUM HYDROXIDE SUSP 30 ML CUP PO PRN (16:45)
[2017-03-10] MEDS ORDERED: ACETAMINOPHEN 325 MG TAB PO PRN (16:45)
[2017-03-10] MEDS ORDERED: ONDANSETRON HCL 4 MG/2 ML VIAL IVP PRN (16:45)
[2017-03-10] MEDS ORDERED: NALOXONE HCL 0.4 MG/ML AMP IV PRN (16:45)
[2017-03-10] MEDS ORDERED: SODIUM CHLORIDE 0.9% FLUSH 10 ML FLUSH IV FLUSH PRN (16:45)
[2017-03-10] MEDS ORDERED: RESP: ALBUTEROL 2.5 MG/IPRATROPIUM 0.5 MG NEB (PRN) NEB (16:45)
[2017-03-10] MEDS ORDERED: LEVOFLOXACIN 750 MG PREMIX INJ 150 ML IV SCH (17:00)
[2017-03-10] MEDS: methylPREDNISolone SOD SUCC 40 MG/1 ML VIAL IV PUSH SCH (18:26)
--- NOTE | 2017-03-10 19:51 | HHI.HP ---
HPI Service [facility] Primary [facility] Physician Reilly Rod M.D. Admission Diagnosis worsening dyspnea on exertion/right pleural effusion Diagnoses: Chief Complaint: Weakness, shakiness, sweating. Travel History International Travel<30 Days: No Contact w/Intl Traveler <30 Da: No Traveled to Known Affected Are: No Sepsis Criteria SIRS Criteria (2 or more): RR > 20 or PaCO2 < 32 History of Present Illness Ms. Kpaadia is a pleasant 76-year-old female with a history of COPD, hypertension, atrial fibrillation and recent pneumonia who presents to the emergency department today due to weakness, shakiness and sweating that started about 3 days ago. She reports cough but mostly nonproductive. She also reports shortness of breath. Patient denies any fever or chills but reports sweating which is not very typical for her to have. Denies any changes in bowel or bladder habits. Patient reports about 20 pound weight loss over last 2 months. Ms.. Kapadia was recently hospitalized and discharged on 02/12/2017 after being treated for COPD exacerbation, atrial fibrillation. During previous hospitalization CT chest confirmed presence of 3 discrete parenchymal densities in the right middle lobe, left lingula and right as azygoesophageal recess. This densities were thought to be pneumonic infiltrates rather than neoplastic processes. However a follow-up CT scan was recommended to rule out atypical neoplasm such as bronchoalveolar carcinoma. Patient was scheduled for repeat CT scan next week. However due to her weakness, shakiness and shortness of breath patient presented to the hospital today 03/10/2017. Review of Systems Except as stated in HPI: all other systems reviewed are Neg Past Family Social History Past Medical History COPD History of C. 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 Past Surgical History Right total knee replacement Hysterectomy Cholecystectomy Cataract surgery Left ear surgery Removal of bone spur right foot fifth digit Reported Medications Cardizem CD 24 HR (Diltiazem CD 24 HR) 240 Mg Caper 240 Mg PO DAILY Ferrous Sulfate 325 Mg Tab 325 Mg PO BID Vitamin C (Ascorbic Acid) 500 Mg Tab 500 Mg PO BID Oxygen tank (Oxygen) 1 Ea Tank 2 Liter LYNDSAY.CANULA CONTINUOUS Oxygen Concentrator Portable Gaseous 2 L/min via Nasal Cannula Continuous For 99 months Reported Cartia Xt (Diltiazem ER 24 HR) 240 Mg Caper 240 Mg PO DAILY Furosemide 40 Mg Tab 40 Mg PO DAILY Norvasc (Amlodipine Besylate) 10 Mg Tab 10 Mg PO DAILY Synthroid (Levothyroxine Sodium) 25 Mcg Tab 25 Mcg PO DAILY Prozac (Fluoxetine HCl) 20 Mg Cap 40 Mg PO DAILY Aspirin 81 Mg Tabdr 81 Mg PO DAILY Zocor (Simvastatin) 80 Mg Tab 40 Mg PO DAILY Vitamin D3 (Cholecalciferol) 400 Unit Cap 400 Units PO DAILY Elavil (Amitriptyline HCl) 25 Mg Tab 1 Tab PO HS Xanax (Alprazolam) 0.5 Mg Tab 0.5 Mg PO BID PRN Duoneb (Ipratropium-Albuterol Neb) 0.5-2.5 Mg/3 Ml Neb 1 Nebule INH Q4HR NEB Allergies: Coded Allergies: Adhesives (Unverified Allergy, Intermediate, TEARS SKIN, 03/10/17) Sulfa (Verified Allergy, Unknown, 03/10/17) HIVES-INTERMEDIATE REACTION Family History Father had lymphoma. No family history of Alzheimer's or Parkinson's. Social History Patient started smoking at the age of 11 and quit smoking briefly when she was 72 years old. One year later she started smoking again. She quit smoking 2.5 months ago. Denies using alcohol or illicit drugs. Physical Exam Vital Signs Vital Signs Date Time Temp Pulse Resp B/P Pulse Ox O2 Delivery O2 Flow Rate FiO2 03/10/17 17:52 78 03/10/17 17:44 95.8 78 20 119/69 96 03/10/17 17:02 82 20 122/55 95 Nasal Cannula 2 03/10/17 16:37 95 Nasal Cannula 2.00 03/10/17 16:04 76 20 123/60 96 Nasal Cannula 2 03/10/17 14:57 77 20 123/63 99 Nasal Cannula 2 03/10/17 14:09 72 20 114/60 96 Nasal Cannula 2 03/10/17 13:45 Nasal Cannula 2 03/10/17 13:45 95 03/10/17 13:10 97.6 89 22 125/64 95 Physical Exam GENERAL: This is a well-nourished, well-developed patient, in no apparent distress. SKIN: No rashes, ecchymoses or lesions. Warm and dry. HEAD: Atraumatic. Normocephalic. No temporal or scalp tenderness. EYES: Pupils equal round and reactive. No injection or drainage. ENT: Nose without bleeding, purulent drainage or septal hematoma. Airway patent. NECK: Trachea midline. No lymphadenopathy. Supple, nontender, no meningeal signs. CARDIOVASCULAR: Regular rate, irregularly irregular rhythm without murmurs, gallops, or rubs. No JVD. RESPIRATORY: Moderate air entry, diffuse rales. Diminished lung sounds in the lower lung jorge R> L GASTROINTESTINAL: Abdomen soft, non-tender, nondistended. No guarding. MUSCULOSKELETAL: Extremities without clubbing, cyanosis, or edema. NEUROLOGICAL: Awake and alert. Cranial nerves II through XII intact. No focal neurological deficits. Normal speech. Laboratory Laboratory Tests Test 03/10/17 13:40 White Blood Count 8.4 Red Blood Count 4.63 Hemoglobin 12.4 Hematocrit 37.7 Mean Corpuscular Volume 81.3 Mean Corpuscular Hemoglobin 26.7 Mean Corpuscular Hemoglobin 32.8 Concent Red Cell Distribution Width 16.3 Platelet Count 270 Mean Platelet Volume 9.9 Neutrophils (%) (Auto) 69.6 Lymphocytes (%) (Auto) 20.6 Monocytes (%) (Auto) 8.2 Eosinophils (%) (Auto) 1.0 Basophils (%) (Auto) 0.6 Neutrophils # (Auto) 5.8 Lymphocytes # (Auto) 1.7 Monocytes # (Auto) 0.7 Eosinophils # (Auto) 0.1 Basophils # (Auto) 0.1 CBC Comment DIFF FINAL Differential Comment Prothrombin Time 10.7 Prothromb Time International 1.0 Ratio Activated Partial 26.3 Thromboplast Time Sodium Level 142 Potassium Level 3.5 Chloride Level 102 Carbon Dioxide Level 31.0 Anion Gap 9 Blood Urea Nitrogen 14 Creatinine 0.73 Estimat Glomerular Filtration 77 Rate Random Glucose 125 Calcium Level 8.4 Total Creatine Kinase 25 Troponin I LESS THAN 0.02 B-Type Natriuretic Peptide 63 Echo 02/09/2017 - Left ventricle: The cavity size was normal. Wall thickness was normal. Systolic function was normal. The estimated ejection fraction was 65%. Wall motion was normal; there were no regional wall motion abnormalities. - Mitral valve: Mild regurgitation. - Tricuspid valve: Mild regurgitation. - Pulmonary arteries: Systolic pressure was mildly increased. PA peak pressure: 43mm Hg (S). Result Diagram: 03/10/17 1340 03/10/17 1340 Imaging Last Impressions Chest CT 03/10/17 1455 Signed Impressions: Service Date/Time: Friday, March 10, 2017 15:34 - CONCLUSION: 1. Moderate-sized pleural effusion on the right side with mild atelectasis or consolidation in the adjacent right lower lung. 2. No acute findings in the left chest or mediastinum. Julian Leiva MD Chest X-Ray 03/10/17 1334 Signed Impressions: Service Date/Time: Friday, March 10, 2017 13:40 - CONCLUSION: Right base consolidation/atelectasis and possible mild effusion. José Corea MD Assessment and Plan Problem List: (1) Pleural effusion, right ICD Code: J90 Status: Acute (2) COPD (chronic obstructive pulmonary disease) ICD Code: J44.9 Status: Acute (3) Afib ICD Code: I48.91 Status: Acute Assessment and Plan Ms. Kapadia is a pleasant 76 year old female with a recent hospitalization for Afib, pneumonia, COPD exacerbation who presented to the ED on 03/10/2017 due to overall unwell feeling, shortness of breath, sweating. She reports about 20 lbs weight loss over the last two months. In the previous hospitalization, CT chest showed densities that were possibly infiltrates vs. bronchoalveolar neoplasm. Follow up CT chest was recommended and was scheduled to be done this week. - Right sided pleural effusion - COPD exacerbation - Probable Pneumonia - Possible post-obstructive pneumonia - Reviewed CT chest images by me, shows moderate right sided pleural effusion. - Will consult Pulmonary to help us to rule out any kind of lung malignancy. - Given patient's history of 60+ years of smoking and recurrent pneumonia, post-obstructive pneumonia is a possibility. - Start Levaquin 750 mg IV daily. - Start Solu Medrol 40 mg IV every 6 hours. - DuoNeb every 4 hours when necessary - Will order US guided Thoracentesis for both diagnostic and therapeutic consideration. - Atrial fibrillation - [id number] score 4 (age, female, HTN). - Will continue Cardizem 240mg Qday. - Consider Apixaban 5mg Q12hrs for Anticoagulation - Currently on Aspirin. On the previous hospitalization, cardiology only recommended aspirin. - Patient does not have any history of bleeding. [id number] score is high. - I do not see any contraindication to Anticoagulation. - Hypertension - Continue Amlodipine 10mg Qday. - Hyperlipidemia - continue statin. - Anxiety - Continue Xanax 0.5mg BID. Full code. SCDs. Physician Certification 2 Midnight Certification Type: Admission for Inpatient Services Order for Inpatient Services The services are ordered in accordance with Medicare regulations or non- Medicare payer requirements, as applicable. In the case of services not specified as inpatient-only, they are appropriately provided as inpatient services in accordance with the 2-midnight benchmark. Estimated LOS (days): 3 days is the estimated time the patient will need to remain in the hospital, assuming treatment plan goals are met and no additional complications. Post-Hospital Plan: [facility] Hiwot Sandhu DO Mar 10, 2017 7:50 pm
[2017-03-10] MEDS: FERROUS SULFATE 325 MG (65 MG ELEMENTAL IRON) TAB PO SCH (20:40)
[2017-03-10] MEDS: ALPRAZolam 0.5 MG TAB PO PRN (20:40)
[2017-03-10] MEDS: SODIUM CHLORIDE 0.9% FLUSH 10 ML FLUSH IV FLUSH SCH (20:40)
[2017-03-10] MEDS ORDERED: AMITRIPTYLINE HCL 25 MG TAB PO SCH (21:00)
[2017-03-11] VITALS (7 sets, daily range): BP systolic 115–146; BP diastolic 61–85; PULSE 79–91; RESP 20–24; TEMP 97.7–98.1; O2SAT 95–98
[2017-03-11] MEDS: methylPREDNISolone SOD SUCC 40 MG/1 ML VIAL IV PUSH SCH ×2 (00:20→05:52)
[2017-03-11] MEDS ORDERED: LEVOTHYROXINE SODIUM 25 MCG TAB PO SCH (06:00)
[2017-03-11 06:26] LABS: AUTOMATED NEUTROPHIL # 5.3 TH/MM3 (1.8-7.7); BASOPHIL % 0.5 % (0.0-2.0); EOSINOPHIL % 0.1 % (0.0-4.0); HEMATOCRIT 39.2 % (35.0-46.0); HEMO FLAGS DIFF FINAL; LYMPH % 12.7 % (9.0-44.0); LYMPHOCYTE # 0.8 TH/MM3 (1.0-4.8); MEAN CELL VOLUME 80.4 FL (80.0-100.0); MEAN CORPUSCULAR HEMOGLOBIN 26.2 PG (27.0-34.0); MEAN CORPUSCULAR HGB CONC 32.6 % (32.0-36.0); MONO % 0.6 % (0.0-8.0); NEUT % 86.1 % (16.0-70.0); PLATELET COUNT 272 TH/MM3 (150-450); RED BLOOD COUNT 4.87 MIL/MM3 (4.00-5.30); RED CELL DISTRIBUTION WIDTH 16.3 % (11.6-17.2); WHITE BLOOD COUNT 6.1 TH/MM3 (4.0-11.0)
[2017-03-11 06:47] LABS: POTASSIUM 3.7 MEQ/L (3.5-5.1)
--- NOTE | 2017-03-11 08:28 | HHI.PR ---
Subjective Remarks Follow up for COPD exacerbation, probable post-obstructive pneumonia. Patient is doing well. Had a good night. No fever, chills. Objective Vitals Vital Signs Date Time Temp Pulse Resp B/P Pulse Ox O2 Delivery O2 Flow Rate FiO2 03/11/17 07:30 97.7 91 20 135/81 95 03/11/17 05:15 98.0 88 20 146/85 97 03/11/17 00:55 97.9 79 24 115/69 95 03/10/17 21:25 96.9 80 20 121/74 94 03/10/17 20:50 96 Nasal Cannula 2.00 03/10/17 20:00 81 03/10/17 17:52 78 03/10/17 17:44 95.8 78 20 119/69 96 03/10/17 17:02 82 20 122/55 95 Nasal Cannula 2 03/10/17 16:37 95 Nasal Cannula 2.00 03/10/17 16:04 76 20 123/60 96 Nasal Cannula 2 03/10/17 14:57 77 20 123/63 99 Nasal Cannula 2 03/10/17 14:09 72 20 114/60 96 Nasal Cannula 2 03/10/17 13:45 Nasal Cannula 2 03/10/17 13:45 95 03/10/17 13:10 97.6 89 22 125/64 95 I/O 03/10/17 03/10/17 03/10/17 03/11/17 03/11/17 03/11/17 07:00 15:00 23:00 07:00 15:00 23:00 Intake Total 620 ml Balance 620 ml Intake Oral 520 ml IV Total 100 ml # Voids 1 2 # Bowel Movements 1 Result Diagram: 03/11/17 0610 03/11/17 0610 Imaging Last Impressions Chest CT 03/10/17 1455 Signed Impressions: Service Date/Time: Friday, March 10, 2017 15:34 - CONCLUSION: 1. Moderate-sized pleural effusion on the right side with mild atelectasis or consolidation in the adjacent right lower lung. 2. No acute findings in the left chest or mediastinum. Julian eLiva MD Chest X-Ray 03/10/17 1334 Signed Impressions: Service Date/Time: Friday, March 10, 2017 13:40 - CONCLUSION: Right base consolidation/atelectasis and possible mild effusion. José Corea MD Objective Remarks GENERAL: Alert, NAD. SKIN: Warm and dry. HEAD: Normocephalic. EYES: No scleral icterus. No injection or drainage. NECK: Supple, trachea midline. No JVD or lymphadenopathy. CARDIOVASCULAR: Regular rate and rhythm without murmurs, gallops, or rubs. RESPIRATORY: Moderate air entry, diminished breath sounds in the lower lung jorge. Mild bibasilar crackles. GASTROINTESTINAL: Abdomen soft, non-tender, nondistended. MUSCULOSKELETAL: No cyanosis, or edema. BACK: Nontender without obvious deformity. No CVA tenderness. Procedures None. A/P Problem List: (1) Pleural effusion, right ICD Code: J90 Status: Acute (2) COPD (chronic obstructive pulmonary disease) ICD Code: J44.9 Status: Acute (3) Afib ICD Code: I48.91 Status: Acute Assessment and Plan Ms. Kapadia is a pleasant 76 year old female with a recent hospitalization for Afib, pneumonia, COPD exacerbation who presented to the ED on 03/10/2017 due to overall unwell feeling, shortness of breath, sweating. She reports about 20 lbs weight loss over the last two months. In the previous hospitalization, CT chest showed densities that were possibly infiltrates vs. bronchoalveolar neoplasm. Follow up CT chest was recommended and was scheduled to be done this week. - Right sided pleural effusion - COPD exacerbation - Probable Pneumonia - Possible post-obstructive pneumonia - Reviewed CT chest images by me on 03/10/2017, shows moderate right sided pleural effusion. - Consulted Pulmonary to help us to rule out any kind of lung malignancy. - Given patient's history of 60+ years of smoking and recurrent pneumonia, post-obstructive pneumonia is a possibility. - Continue Levaquin 750 mg IV daily. - Continue Solu Medrol 40 mg IV every 6 hours. - DuoNeb every 4 hours when necessary - US guided Thoracentesis for both diagnostic and therapeutic consideration. Follow cytology, culture results. - Atrial fibrillation - [id number] score 4 (age, female, HTN). - Will continue Cardizem 240mg Qday. - Consider Apixaban 5mg Q12hrs for Anticoagulation - Currently on Aspirin. On the previous hospitalization, cardiology only recommended aspirin. - Patient does not have any history of bleeding. [id number] score is high. - I do not see any contraindication to Anticoagulation. - Hypertension - Continue Amlodipine 10mg Qday. - Hyperlipidemia - continue statin. - Anxiety - Continue Xanax 0.5mg BID. Full code. SCDs. Hiwot Sandhu DO Mar 11, 2017 8:28 am
[2017-03-11] MEDS ORDERED: CHOLECALCIFEROL (VIT D3) 400 UNIT TAB PO SCH (09:00)
[2017-03-11] MEDS ORDERED: ASPIRIN EC 81 MG TABEC PO SCH (09:00)
[2017-03-11] MEDS ORDERED: PRAVASTATIN SOD 80 MG TAB PO SCH (09:00)
[2017-03-11] MEDS ORDERED: FLUoxetine HCL 20 MG CAP PO SCH (09:00)
[2017-03-11] MEDS ORDERED: DILTIAZEM-CD 240 MG CAP ER PO SCH (09:00)
[2017-03-11] MEDS: FERROUS SULFATE 325 MG (65 MG ELEMENTAL IRON) TAB PO SCH (09:25)
[2017-03-11] MEDS: ALPRAZolam 0.5 MG TAB PO PRN (09:25)
--- NOTE | 2017-03-11 10:35 | RADHPO ---
EXAM DATE/TIME: 03/11/2017 09:59 [facility] COMPARISON: No previous studies available for comparison. INDICATIONS : Post Thoracentesis MEDICAL HISTORY : Hypertension. Chronic obstructive pulmonary disease. SURGICAL HISTORY : Cholecystectomy. Hysterectomy.Orthopedic surgery. ENCOUNTER: Initial ACUITY: 1 week PAIN SCORE: 0/10 LOCATION: Bilateral chest FINDINGS: A single frontal expiratory view of the chest was performed. The lungs are symmetrically aerated and clear. No evidence of pneumothorax. Mediastinal structures are in the midline. The cardio-mediastinal contours and bronchopulmonary markings are unremarkable for an expiratory exam . Osseous structures are intact. CONCLUSION: No pneumothorax. Seth Molina MD on March 11, 2017 at 10:33 Board Certified Radiologist. This report was verified electronically.
[2017-03-11] MEDS: SODIUM CHLORIDE 0.9% FLUSH 10 ML FLUSH IV FLUSH SCH (10:51)
--- NOTE | 2017-03-11 10:54 | HHI.FF ---
Face to Face Verification Diagnosis: (1) COPD (chronic obstructive pulmonary disease) (2) Pneumonia (3) Pleural effusion, right (4) Afib Physical Therapy Order: Evaluate and Treat, Improve ambulation, Strength and gait training Home Health Nursing Order: Medical education Signs/symptoms of disease process Oxygen administration education Nursing assessment with vital signs I have seen patient Aisha Kapadia on 03/11/17. My clinical findings support the need for the requested home health care services because: Patient has SOB Deconditioned w/ increased weakness Limited ability to care for self Need for psychosocial assistance Infection w/ risk of complications I certify that my clinical findings support that this patient is homebound because: Hx COPD- exertion dyspnea/weakness Unsafe to leave home unassisted Need for psychosocial assistance Unable to use public transportation Hiwot Sandhu DO Mar 11, 2017 10:54 am
[2017-03-11] MEDS ORDERED: predniSONE 20 MG TAB PO SCH (11:00)
[2017-03-11] MEDS ORDERED: LEVOFLOXACIN 750 MG TAB PO ONE (11:00)
[2017-03-11] MEDS ORDERED: FURO40TA PO (11:02)
[2017-03-11] MEDS ORDERED: LEVA750T PO (11:02)
[2017-03-11] MEDS ORDERED: CARD240C6 PO (11:02)
[2017-03-11] MEDS ORDERED: PRED20 PO (11:02)
--- NOTE | 2017-03-11 11:55 | RADHPO ---
EXAM DATE/TIME: 03/11/2017 09:01 [facility] COMPARISON: EXTERNAL COMPARISON: CHEST EXPIRATION ONLY, March 11, 2017, 9:59. [facility], Chest Xray, Mar 05 2017. [address] Xray, 11/08/14, 03/01/11, 08/14/2010. INDICATIONS : Right pleural effusion. MEDICAL HISTORY : Hypertension. Hypercholesterolemia. Chronic obstructive pulmonary disease. Hypothyroid. SURGICAL HISTORY : Cholecystectomy Hysterectomy. Right knee replacement. ENCOUNTER: Initial ACUITY: 1 day PAIN SCORE: 0/10 LOCATION: Right chest FLUID: Total volume of 300 cc of clear, red fluid was removed. Fluid was sent to lab for ordered studies. TECHNIQUE: 1. Ultrasound guidance for thoracentesis. 2. Thoracentesis. The risks, benefits, and alternatives to ultrasound guided thoracentesis were explained to the patien t in lay simple terms, including the risk of bleeding and infection. Written and verbal informed con sent was obtained. Appropriate area for thoracentesis was marked under ultrasound guidance with the patient in the uprig ht position. Overlying skin was prepped and draped in the usual sterile fashion and with local anest hetic, a dermatotomy was made with an 11 blade scalpel. A 6 [place] thoracentesis catheter was placed in the pleural space and fluid was removed. Catheter was then removed and a sterile dressing applie d. There were no immediate complications. The patient tolerated the procedure well and the left the ultrasound suite in stable condition. Chest radiograph is to be obtained. CONCLUSION: Uncomplicated ultrasound guided thoracentesis. Jhonny Chao MD on March 11, 2017 at 11:53 Board Certified Radiologist. This report was verified electronically.
[2017-03-11 12:30] LABS: PLEURAL FLUID LYMPHS 28 %
[2017-03-11 12:32] LABS: PLEURAL FLUID PH 7.7
[2017-03-11 13:17] LABS: TOTAL PROTEIN,PLEURAL FLUID 4.1 GM/DL
--- NOTE | 2017-03-11 14:30 | EKG ---
Date Performed: 03/10/2017 Time Performed: 13:09:52 PTAGE: 76 years EKG: Sinus rhythm with PAC(s) Left axis deviation Compared to prior tracing no significant change Borderline ECG PREVIOUS TRACING : 02/10/2017 05.59 DOCTOR: Rashi Weldon Interpretating Date/Time 03/11/2017 14:26:15
== END 2017-03-11 14:22 | disposition home or self-care (01) | DRG 186 ==
LOC: PHED 12:54 → PHEDA 16:30 → OBSVTOIN 16:45 → PH3B 17:27
PROVIDERS: ADMIT Hospitalist; ATTEND Hospitalist
PROC: 0W993ZZ Drainage of Right Pleural Cavity, Percutaneous Approach (ICD-10-PCS; principal; 2017-03-11)
DX: J90 Pleural effusion, not elsewhere classified (principal); J18.9 Pneumonia, unspecified organism; Z99.81 Dependence on supplemental oxygen; I48.91 Unspecified atrial fibrillation; J44.0 Chronic obstructive pulmonary disease with (acute) lower respiratory infection; J44.1 Chronic obstructive pulmonary disease with (acute) exacerbation; J98.11 Atelectasis; I10 Essential (primary) hypertension; F41.9 Anxiety disorder, unspecified; R63.4 Abnormal weight loss; E03.9 Hypothyroidism, unspecified; E78.5 Hyperlipidemia, unspecified; H91.90 Unspecified hearing loss, unspecified ear; F17.200 Nicotine dependence, unspecified, uncomplicated; Z86.718 Personal history of other venous thrombosis and embolism; Z88.2 Allergy status to sulfonamides; Z96.651 Presence of right artificial knee joint
CPT/HCPCS: 32555; 71010; 71260; 80048; 82150; 82550; 82945; 83615; 83880; 83986; 84157; 84484; 85025; 85610; 85730; 87015; 87070; 87102; 87116; 87205; 87206; 88112; 88305; 89051; 93005; 94640; 94664; C1729; J1956; J2920; J7512; Q9967

== ENCOUNTER 2017-05-15 12:54 | Emergency (ER) | payer MEDICARE, OTHER ==
[2017-05-15] VITALS (7 sets, daily range): BP systolic 123–143; BP diastolic 53–73; PULSE 40–84; RESP 16–26; TEMP 98; O2SAT 93–98
[~2017-05-15] VITALS: Ht 167.6 cm; Wt 92.0 kg
[~2017-05-15 12:54] MED LIST changes: +CART240C PO; +FURO40TA PO; -MEDR4PAK PO; +PRED20 PO
[2017-05-15] MEDS ORDERED: ASPI81CH7 CHEW (13:16)
[2017-05-15] MEDS ORDERED: VITA250C3 CHEW (13:16)
[2017-05-15] MEDS ORDERED: CART120C PO (13:16)
[2017-05-15] MEDS ORDERED: FLUT1INH INH (13:16)
[2017-05-15] MEDS ORDERED: FERR324T4 PO (13:16)
[2017-05-15] MEDS ORDERED: SODIUM CHLORIDE 0.9% FLUSH 10 ML FLUSH IVF PRN (13:30)
[2017-05-15] MEDS ORDERED: FUROSEMIDE 100 MG/10 ML VIAL IVP ONE (13:30)
[2017-05-15] MEDS ORDERED: methylPREDNISolone SOD SUCC 125 MG/2 ML VIAL IVP ONE (13:30)
[2017-05-15] MEDS: RESP: ALBUTEROL 2.5 MG/IPRATROPIUM 0.5 MG NEB (SCH) INH (13:39)
[2017-05-15 13:41] LABS: AUTOMATED NEUTROPHIL # 5.7 TH/MM3 (1.8-7.7); BASOPHIL # 0.1 TH/MM3 (0-0.2); BASOPHIL % 0.7 % (0.0-2.0); EOSINOPHIL # 0.2 TH/MM3 (0-0.4); EOSINOPHIL % 1.9 % (0.0-4.0); HEMATOCRIT 36.9 % (35.0-46.0); HEMO FLAGS DIFF FINAL; LYMPH % 22.6 % (9.0-44.0); LYMPHOCYTE # 1.9 TH/MM3 (1.0-4.8); MEAN CELL VOLUME 83.2 FL (80.0-100.0); MEAN CORPUSCULAR HEMOGLOBIN 27.7 PG (27.0-34.0); MEAN CORPUSCULAR HGB CONC 33.3 % (32.0-36.0); MONO % 8.1 % (0.0-8.0); NEUT % 66.7 % (16.0-70.0); PLATELET COUNT 272 TH/MM3 (150-450); RED BLOOD COUNT 4.44 MIL/MM3 (4.00-5.30); RED CELL DISTRIBUTION WIDTH 14.4 % (11.6-17.2); WHITE BLOOD COUNT 8.6 TH/MM3 (4.0-11.0)
--- NOTE | 2017-05-15 13:41 | PD ---
HPI . Dyspnea Chief Complaint: Respiratory Symptoms Time Seen by Provider: 13:14 Travel History International Travel<30 days: No Contact w/Intl Traveler<30days: No Traveled to known affect area: No History of Present Illness HPI Patient presents with a chief complaint of increasing shortness of breath over the last 4 days. The patient has recently been on a short course of Lasix. She states that the swelling in her legs and her shortness of breath improved while Lasix. Liver, Lasix prescription ended about 4 days ago and her symptoms immediately started progressing. The patient is O2 dependent and has not noticed any change in her use of oxygen. She does state that her activity level is markedly declined because of the shortness of breath. She does not have any chest pain. The patient is complaining with lower abdominal pain. It has also been present for the last several days. It is exacerbated by eating. No relieving factor. She reports no associated symptoms such as fever, urinary tract symptoms, vomiting/diarrhea. She denies anorexia. Pain is rated at 8/10. PFSH Past Medical History Hx Anticoagulant Therapy: No Arthritis: Yes Anxiety: Yes Depression: Yes Heart Rhythm Problems: No Cancer: No Cardiac Catheterization: Yes Cardiovascular Problems: Yes (HTN AFIB CHF) High Cholesterol: Yes Congestive Heart Failure: Yes COPD: Yes Cerebrovascular Accident: No Coronary Artery Disease: Yes Diabetes: No Diminished Hearing: Yes Endocrine: Yes Gastrointestinal Disorders: Yes GERD: No Genitourinary: No Hepatitis: No Hiatal Hernia: No Hypertension: Yes Immune Disorder: No Implanted Vascular Access Dvce: Yes Musculoskeletal: Yes Neurologic: No Psychiatric: Yes (ANXIETY) Reproductive: No Respiratory: Yes (COPD) Immunizations Current: Yes Seizures: No Thyroid Disease: Yes (HYPO) Ulcer: Yes Tetanus Vaccination: Unknown Influenza Vaccination: Yes ?: Not Menopausal: Yes Past Surgical History Abdominal Surgery: Yes (CHOLECYSTECTOMY) Body Medical Devices: BRITTON HEARING AIDS Cholecystectomy: Yes Ear Surgery: Yes (LEFT EAR SX) Eye Surgery: Yes (BRITTON CATARACT EXTRACTION) Gynecologic Surgery: Yes (HYSTERECTOMY) Hysterectomy: Yes Joint Replacement: Yes (right knee 12/2014) Other Surgery: Yes (lt ear) Social History Alcohol Use: No Tobacco Use: No Substance Use: No Allergies-Medications (Allergen,Severity, Reaction): Coded Allergies: Adhesives (Unverified Allergy, Intermediate, TEARS SKIN, 05/15/17) Sulfa (Verified Allergy, Unknown, 05/15/17) HIVES-INTERMEDIATE REACTION Reported Meds & Prescriptions Reported Meds & Active Scripts Active Oxygen tank (Oxygen) 1 Ea Tank 2 Liter LYNDSAY.CANULA CONTINUOUS Oxygen Concentrator Portable Gaseous 2 L/min via Nasal Cannula Continuous For 99 months Reported Arelio Ellipta Inh (Fluticasone/Vilanterol) 100-25 Mcg/Act Inh 1 Puff INH DAILY Use daily at the same time. Ferrous Sulfate DR (Ferrous Sulfate) 324 Mg Tabdr 35 Mg PO BID Cartia Xt (Diltiazem ER 24 HR) 120 Mg Caper 240 Mg PO DAILY Aspirin Children's (Aspirin) 81 Mg Chew 81 Mg CHEW DAILY Vitamin C (Ascorbic Acid) 250 Mg Chew 500 Mg CHEW BID Norvasc (Amlodipine Besylate) 10 Mg Tab 10 Mg PO DAILY Synthroid (Levothyroxine Sodium) 25 Mcg Tab 25 Mcg PO DAILY Prozac (Fluoxetine HCl) 20 Mg Cap 40 Mg PO DAILY Zocor (Simvastatin) 80 Mg Tab 40 Mg PO DAILY Xanax (Alprazolam) 0.5 Mg Tab 0.5 Mg PO BID PRN Duoneb (Ipratropium-Albuterol Neb) 0.5-2.5 Mg/3 Ml Neb 1 Nebule INH Q4HR NEB Review of Systems Except as stated in HPI: all other systems reviewed are Neg General / Constitutional: No: Fever, Chills Cardiovascular: No: Chest Pain or Discomfort Respiratory: Positive: Shortness of Breath Gastrointestinal: Positive: Abdominal Pain, No: Nausea, Vomiting, Diarrhea, Constipation, Loss of Appetite Genitourinary: No: Urgency, Frequency, Dysuria Physical Exam Narrative GENERAL: Patient is awake and alert and fully oriented. SKIN: Warm and dry. She has darkened skin on her lower extremities compatible with peripheral vascular disease. HEAD: Atraumatic. Normocephalic. EYES: Pupils equal and round. Extraocular movements are intact. ENT: No nasal bleeding or discharge. Mucous membranes pink and moist. NECK: Trachea midline. Neck is supple. CARDIOVASCULAR: Regular rate and rhythm. Heart sounds are normal. RESPIRATORY: No accessory muscle use. Respiratory expiratory wheezing. Decreased air movement. Rales in the bases. GASTROINTESTINAL: Abdomen soft, non-tender, nondistended. MUSCULOSKELETAL: No obvious deformities. 3+ pretibial pitting edema. NEUROLOGICAL: Awake and alert. No obvious cranial nerve deficits. Motor grossly within normal limits. Normal speech. PSYCHIATRIC: Appropriate mood and affect; insight and judgment normal. Data Data Last Documented VS Vital Signs Date Time Temp Pulse Resp B/P Pulse Ox O2 Delivery O2 Flow Rate FiO2 05/15/17 16:00 84 18 143/53 94 Nasal Cannula 2 05/15/17 13:16 98.0 Orders Complete Blood Count With Diff (05/15/17 13:24) Basic Metabolic Panel (Bmp) (05/15/17 13:24) B-Type Natriuretic Peptide (05/15/17 13:24) Magnesium (Mg) (05/15/17 13:24) Ckmb (Isoenzyme) Profile (05/15/17 13:24) Troponin I (05/15/17 13:24) Urinalysis - C+S If Indicated (05/15/17 13:24) Iv Access Insert/Monitor (05/15/17 13:24) Electrocardiogram (05/15/17 13:24) Ecg Monitoring (05/15/17 13:24) Oximetry (05/15/17 13:24) Oxygen Administration (05/15/17 13:24) Chest, Single Ap (05/15/17 13:24) Sodium Chloride 0.9% Flush (Ns Flush) (05/15/17 13:30) Furosemide Inj (Lasix Inj) (05/15/17 13:30) Methylprednisolone So Succ Inj (Solumedr (05/15/17 13:30) Albuterol-Ipratropium Neb (Duoneb Neb) (05/15/17 13:30) Abdomen, Flat & Upright (05/15/17 13:24) Aspirin Chew (Aspirin Chew) (05/15/17 13:45) Nitroglycerin 2% Oint (Nitroglycerin 2% (05/15/17 13:45) Cath For Specimen (05/15/17 15:51) Labs Laboratory Tests Test 05/15/17 05/15/17 13:05 16:00 White Blood Count 8.6 TH/MM3 Red Blood Count 4.44 MIL/MM3 Hemoglobin 12.3 GM/DL Hematocrit 36.9 % Mean Corpuscular Volume 83.2 FL Mean Corpuscular Hemoglobin 27.7 PG Mean Corpuscular Hemoglobin 33.3 % Concent Red Cell Distribution Width 14.4 % Platelet Count 272 TH/MM3 Mean Platelet Volume 10.4 FL Neutrophils (%) (Auto) 66.7 % Lymphocytes (%) (Auto) 22.6 % Monocytes (%) (Auto) 8.1 % Eosinophils (%) (Auto) 1.9 % Basophils (%) (Auto) 0.7 % Neutrophils # (Auto) 5.7 TH/MM3 Lymphocytes # (Auto) 1.9 TH/MM3 Monocytes # (Auto) 0.7 TH/MM3 Eosinophils # (Auto) 0.2 TH/MM3 Basophils # (Auto) 0.1 TH/MM3 CBC Comment DIFF FINAL Differential Comment Sodium Level 141 MEQ/L Potassium Level 3.4 MEQ/L Chloride Level 100 MEQ/L Carbon Dioxide Level 31.9 MEQ/L Anion Gap 9 MEQ/L Blood Urea Nitrogen 13 MG/DL Creatinine 0.70 MG/DL Estimat Glomerular Filtration 81 ML/MIN Rate Random Glucose 123 MG/DL Calcium Level 9.2 MG/DL Magnesium Level 2.0 MG/DL Total Creatine Kinase 51 U/L Troponin I LESS THAN 0.02 NG/ML B-Type Natriuretic Peptide 94 PG/ML Urine Collection Type CLEAN CATCH Urine Color YELLOW Urine Turbidity CLEAR Urine pH 5.5 Urine Specific [place] 1.010 Urine Protein NEG mg/dL Urine Glucose (UA) NEG mg/dL Urine Ketones NEG mg/dL Urine Occult Blood NEG Urine Nitrite NEG Urine Bilirubin NEG Urine Leukocyte Esterase NEG Urine WBC 0-2 /hpf Urine Squamous Epithelial 0-5 /hpf Cells Urine Renal Epithelial Cells 0-5 /hpf Microscopic Urinalysis Comment CULT NOT INDICATED Urine Collection Time 16:00 [facility] Medical Decision Making Medical Screen Exam Complete: Yes Emergency Medical Condition: Yes Medical Record Reviewed: Yes (records reviewed. Patient has a history of COPD , hypertension, atrial fibrillation, previous pneumonia or CHF. Most recent ejection fraction was 65% in January 2017.) Interpretation(s) EKG shows a sinus rhythm with occasional PAC. No ST segment elevation or depression. EKG is unchanged from previous. Differential Diagnosis Differential diagnosis of dyspnea includes but is not limited to congestive heart failure, pneumonia, wheezing, pneumothorax, pulmonary embolism Narrative Course This patient presents with dyspnea. She probably has a component of pulmonary edema and a component of COPD exacerbation. She will be treated for both. She is also complaining with lower abdominal pain. I have added a flat and upright of the abdomen and a UA to her workup. CBC & BMP Diagram 05/15/17 13:05 Cardiac enzymes are normal. BNP is 94. Patient reports she is feeling much better. UA neg. The patient has been resting comfortably on the stretcher several hours now. She is stable for discharge to home. Diagnosis Primary Impression: Dyspnea Qualified Code: R06.00 - Dyspnea, unspecified type Additional Impressions: COPD (chronic obstructive pulmonary disease) Qualified Code: J44.1 - Chronic obstructive pulmonary disease with acute exacerbation Edema Qualified Code: R60.9 - Edema, unspecified type Patient Instructions: COPD (Chronic Obstructive Pulmonary Disease) (DC), General Instructions, Leg Edema (ED) Med/Other Pt SpecificInfo: Prescription(s) given Scripts Furosemide (Lasix)20 Mg Tab20 Mg PO DAILY #30 TAB Ref 0 Prov:Jena Cuellar MD 05/15/17 Prednisone 20 Mg Tab20 Mg PO BID 5 Days Ref 0 Prov:Jena Cuellar MD 05/15/17 Disposition: 01 DISCHARGE HOME Condition: Stable Jena Cuellar MD May 15, 2017 13:41
[2017-05-15] MEDS ORDERED: NITROGLYCERIN 2% OINT 1 GM PACKET TOPICAL ONE (13:45)
[2017-05-15] MEDS ORDERED: ASPIRIN 81 MG CHEW TAB CHEW ONE (13:45)
[2017-05-15 13:47] LABS: CHLORIDE 100 MEQ/L (98-107); POTASSIUM 3.4 MEQ/L (3.5-5.1); SODIUM (NA) 141 MEQ/L (136-145)
[2017-05-15 13:50] LABS: ANION GAP 9 MEQ/L (5-15); BICARBONATE 31.9 MEQ/L (21.0-32.0); BLOOD UREA NITROGEN 13 MG/DL (7-18)
[2017-05-15 13:54] LABS: GLOMERULAR FILTRATION RATE 81 ML/MIN (>89)
[2017-05-15 13:58] LABS: CREATINE KINASE 51 U/L (26-192)
--- NOTE | 2017-05-15 14:30 | RADRPT ---
EXAM DATE/TIME: 05/15/2017 14:05 [facility] COMPARISON: CHEST SINGLE AP, March 10, 2017, 13:40. INDICATIONS : Short of breath MEDICAL HISTORY : Chronic obstructive pulmonary disease. Hypertension Hypercholesterolemia. Congestive heart failur e, AFib SURGICAL HISTORY : Cholecystectomy. Hysterectomy. Cardiac catherization ENCOUNTER: Initial ACUITY: 1 day PAIN SCORE: 4/10 LOCATION: Bilateral chest FINDINGS: There is mild interstitial edema present with minimal cardiomegaly. There is no pleural effusion. Th e portion of the bony skeleton visualized is unremarkable. CONCLUSION: Mild congestive failure without significant effusion. David Myers MD FACR on May 15, 2017 at 14:27 Board Certified Radiologist. This report was verified electronically.
--- NOTE | 2017-05-15 14:35 | RADRPT ---
EXAM DATE/TIME: 05/15/2017 14:09 [facility] COMPARISON: ABDOMEN FLAT & UPRIGHT, February 28, 2015, 10:33. INDICATIONS : Abdominal pain MEDICAL HISTORY : Chronic obstructive pulmonary disease. Hypertension Hypercholesterolemia. Congestive heart failur e, AFib SURGICAL HISTORY : Cholecystectomy. Hysterectomy. Cardiac catheterization. ENCOUNTER: Initial ACUITY: 1 day PAIN SCORE: 3/10 LOCATION: Bilateral lower quadrant abdomen FINDINGS: There is no evidence of bowel obstruction, ileus or perforation. Degenerative changes and scoliosis of the thoracolumbar spine are noted. Degenerative changes are also noted involving the hip joints b ilaterally. No radiopaque densities resembling urinary calculi are noted. CONCLUSION: 1. No evidence of bowel obstruction, ileus or perforation. 2. Degenerative changes and scoliosis of the thoracolumbar spine. 3. Degenerative changes involving the hip joints bilaterally. Ward Chavarria MD on May 15, 2017 at 14:29 Board Certified Radiologist. This report was verified electronically.
[2017-05-15 16:04] LABS: BLOOD, URINE NEG (NEG); GLUCOSE,URINE NEG (NEG); KETONE, URINE NEG (NEG); NITRITE,URINE NEG (NEG); PH, URINE 5.5 (5.0-8.5)
[2017-05-15 16:07] LABS: METHOD OF COLLECTION CLEAN CATCH; URINE COLOR YELLOW (YELLW/STRAW)
[2017-05-15 16:08] LABS: COMMENT (UR) CULT NOT INDICATED; CULTURE IF INDICATED CULT NOT INDICATED; RENAL EPITHELIAL CELLS 0-5 /hpf; SQUAMOUS EPITHELIAL CELL URINE 0-5 /hpf (0-5); WBC, URINE 0-2 /hpf (0-5)
[2017-05-15] MEDS ORDERED: PRED20 PO (16:16)
[2017-05-15] MEDS ORDERED: FURO1TAB62 PO (16:16)
--- NOTE | 2017-05-16 08:08 | EKG ---
Date Performed: 05/15/2017 Time Performed: 13:39:46 PTAGE: 77 years EKG: Sinus rhythm WITH OCCASIONAL SUPRAVENTRICULAR PREMATURE COMPLEXES BORDERLINE LEFT AXIS DEVIATION BORDERLINE ECG PREVIOUS TRACING : 03/10/2017 13.09 DOCTOR: Cricket Velásquez Interpretating Date/Time 05/16/2017 08:01:30
== END 2017-05-15 16:38 | disposition home or self-care (01) ==
LOC: PHED 12:54
DX: R06.00 Dyspnea, unspecified (principal); J44.1 Chronic obstructive pulmonary disease with (acute) exacerbation; R60.9 Edema, unspecified; I10 Essential (primary) hypertension; I48.91 Unspecified atrial fibrillation; I50.9 Heart failure, unspecified; E78.00 Pure hypercholesterolemia, unspecified; I25.10 Atherosclerotic heart disease of native coronary artery without angina pectoris; Z99.81 Dependence on supplemental oxygen; E03.9 Hypothyroidism, unspecified
CPT/HCPCS: 71010; 74020; 80048; 81001; 82550; 83735; 83880; 84484; 85025; 93005; 94640; 94664; 96374; 96375; 99285; J1940; J2930